=== PATIENT | male | born 1955 | race Caucasian/White ===

== ENCOUNTER 2017-12-23 11:26 | Outpatient (RCR) | payer SELFPAY | END 2017-12-24 23:59 | disposition home or self-care (01) | LOC: CR 11:26 | PROVIDERS: PCP Family Medicine; Visit Provider Family Medicine | DX: Z51.89 Encounter for other specified aftercare (principal); I10 Essential (primary) hypertension; J44.9 Chronic obstructive pulmonary disease, unspecified; E11.9 Type 2 diabetes mellitus without complications ==

== ENCOUNTER 2018-01-20 11:00 | Outpatient (RCR) | payer SELFPAY | END 2018-01-23 23:59 | disposition home or self-care (01) | LOC: CR 11:00 | PROVIDERS: PCP Family Medicine; Visit Provider Family Medicine | DX: Z51.89 Encounter for other specified aftercare (principal) ==

== ENCOUNTER 2018-02-15 11:00 | Outpatient (RCR) | payer SELFPAY | END 2018-02-23 23:59 | disposition home or self-care (01) | LOC: CR 11:00 | PROVIDERS: PCP Family Medicine; Visit Provider Family Medicine | DX: Z51.89 Encounter for other specified aftercare (principal) ==

== ENCOUNTER 2018-02-24 04:54 | Outpatient (RCR) | payer SELFPAY | END 2018-03-25 23:59 | disposition home or self-care (01) | LOC: CR 04:54 | PROVIDERS: PCP Family Medicine; Visit Provider Family Medicine | DX: Z51.89 Encounter for other specified aftercare (principal) ==

== ENCOUNTER 2018-02-28 08:44 | Outpatient (REF) | payer MEDICARE, BC, SELFPAY ==
[2018-02-28 12:38] LABS: HCT 47.6 % (40.0-50.0); HGB 14.8 g/dL (13.5-17.5); Mean Corp. HGB Concentration 31.1 g/dL (32.0-36.0); Mean Corpuscular Hemoglobin 30.5 pg (27.0-33.0); Mean Corpuscular Volume 98.1 fL (80-95); Mean Platelet Volume 12.5 fL (8.0-11.0); Platelet Count 231 x1000/uL (130-400); RBC 4.85 m/cumm (4.50-6.00); RBC Distribution Width 12.7 % (11.8-14.1); White Blood Cell Count 6.78 k/cumm (4.4-10.8)
[2018-02-28 12:51] LABS: ALT 44 U/L (12-78); AST 24 U/L (15-37); Albumin 3.8 g/dL (3.4-5.0); Alkaline Phosphatase 110 U/L (46-116); BUN 23 mg/dL (7-18); Bilirubin, Total 0.5 mg/dL (0.2-1.0); CREATININE 1.18 mg/dL (0.70-1.30); Calcium 8.9 mg/dL (8.5-10.1); Chloride 103 mmol/L (98-107); Cholesterol 179 mg/dL (50-200); Glucose 100 mg/dL (70-100); HDL Cholesterol 38 mg/dL (40-60); LDL CHOLESTEROL 121 mg/dL (<100); Potassium 4.4 mmol/L (3.5-5.1); Sodium 140 mmol/L (136-145); Total Protein 6.8 g/dL (6.4-8.2); Triglyceride 112 mg/dL (30-150)
== END 2018-02-28 09:04 ==
LOC: NCHCN 08:44
PROVIDERS: PCP Family Medicine; Visit Provider Family Medicine
DX: I10 Essential (primary) hypertension (principal); E11.9 Type 2 diabetes mellitus without complications; E78.00 Pure hypercholesterolemia, unspecified
CPT/HCPCS: 80053; 80061; 83721; 85027

== ENCOUNTER 2018-04-21 15:04 | Outpatient (RCR) | payer SELFPAY | END 2018-04-25 23:59 | disposition home or self-care (01) | LOC: CR 15:04 | PROVIDERS: PCP Family Medicine; Visit Provider Family Medicine | DX: Z51.89 Encounter for other specified aftercare (principal) ==

== ENCOUNTER 2018-05-26 11:00 | Outpatient (RCR) | payer SELFPAY | END 2018-05-26 23:59 | disposition home or self-care (01) | LOC: CR 11:00 | PROVIDERS: PCP Family Medicine; Visit Provider Family Medicine | DX: Z51.89 Encounter for other specified aftercare (principal) ==

== ENCOUNTER 2018-06-23 12:53 | Outpatient (RCR) | payer SELFPAY | END 2018-06-23 23:59 | disposition home or self-care (01) | LOC: CR 12:53 | PROVIDERS: PCP Family Medicine; Visit Provider Family Medicine | DX: Z51.89 Encounter for other specified aftercare (principal) ==

== ENCOUNTER 2018-07-21 11:00 | Outpatient (RCR) | payer SELFPAY | END 2018-07-24 23:59 | disposition home or self-care (01) | LOC: CR 11:00 | PROVIDERS: PCP Family Medicine; Visit Provider Family Medicine | DX: Z51.89 Encounter for other specified aftercare (principal) ==

== ENCOUNTER 2018-08-23 11:00 | Outpatient (RCR) | payer SELFPAY | END 2018-08-23 23:59 | disposition home or self-care (01) | LOC: CR 11:00 | PROVIDERS: PCP Family Medicine; Visit Provider Family Medicine | DX: Z51.89 Encounter for other specified aftercare (principal) ==

== ENCOUNTER 2018-09-16 13:03 | Emergency (ER) | payer MEDICARE, BC, SELFPAY ==
[2018-09-16 13:08] VITALS: BP 114/62; PULSE 92; RESP 20; TEMP 36.5; O2SAT 94
--- NOTE | 2018-09-16 13:12 | W.ED.GENAD ---
Discharge Plan Disposition Patient Disposition: HOME Condition: Improving Discharge Details Chief Complaint: Urinary Clinical Impression: Hematuria Primary Care Provider: Laura Vincent ED Provider: Daljit Alejo Home Meds and New Rx's Prescriptions: Continued atorvastatin [Lipitor] 80 MG tablet 80 mg PO DAILY RF: 0 acetaminophen [Tylenol] 325 MG tablet 650 mg PO Q4H PRN PRNQty: 90 RF: 0 Combivent Respimat 120 PUFF mist 1 puff Inhalation QID Qty: 6 RF: 0 albuterol sulfate 2.5 MG/3 ML solution for nebulization 2.5 mg Inhalation PRN PRNRF: 0 acetaminophen [Tylenol Extra Strength] 500 MG tablet 500 mg PO Q3H PRN PRNQty: 1 RF: 0 Xarelto 20 MG tablet 20 mg PO DAILY RF: 0 loratadine [Claritin Liqui-Gel] 10 mg Capsule 10 mg PO DAILY RF: 0 levetiracetam [Keppra] 250 MG tablet 500 mg PO BID RF: 0 lisinopril 20 MG tablet 20 mg PO DAILY RF: 0 Discharge Instructions Instructions: Hematuria (ED) Additional Instructions: Return if you develop fever, difficulty urinating, pain, or any other acute concerns As we discussed, I will refer you to urology for a outpatient consultation. Please follow-up with Dr. Vincent for recheck in the next 7 to 10 days time. Continue all regular medications Medical Decision Making 63-year-old male who takes Xarelto for history of pulmonary embolism. He presents with one episode of hematuria that he notes was bright red urine x1 and was painless. Denies antecedent injury or illness. He arrives with a temp of 36.5, pulse in the 90s, blood pressure 114/62. He is in no acute distress and his exam is reassuring. Differential diagnosis includes cystitis, bleeding due to anticoagulation, nephritis, tract mass. IV placed and screening labs and urinalysis obtained. Patient referred for CT urogram. The diagnostic studies reveal hematuria without evidence of UTI. Labs: White blood cell count 8, hematocrit 47, platelets 226, PT 10.0. Sodium 139, potassium 3.9, chloride 100, bicarb 29 BUN 23, creatinine 1.2. CTurogram is without acute findings. Please see formal report. As the patient has had pulmonary embolism, I feel that he must continue his Xarelto. We will refer to urology for completion of painless hematuria work-up. He understands return precautions including urinary bladder outlet obstruction, fever, development of pain. He is stable for discharge to home at this time. CC: Dr. Laura Vincent, [facility] Mode of arrival: ambulatory. Date/Time Provider Initiated Documentation: 09/16/18 13:05. Limitations to Documentation: no limitations. Information obtained by: patient and family. History of Present Illness 63 year old M presents to the emergency department with the chief complaint of Painless hematuria today, on Xarelto, described as mild, Quality is described as burning, and is localized to the genitals. Patient reports no radiation. Patient started experiencing this minute(s) and it has been intermittent. No relieving factors improve symptom(s), No exacerbating factors reported . Patient notes no other symptoms.; denies fever/chills and nausea/vomiting. Patient did receive the following treatments prior to arrival, none Related Data Home Medications Medication Instructions Recorded Confirmed atorvastatin [Lipitor] 80 mg PO DAILY 10/07/12 09/16/18 Combivent Respimat 1 puff INHALATION QID #6 inh 07/18/14 09/16/18 acetaminophen [Tylenol] 650 mg PO Q4H PRN PRN #90 tab 07/18/14 10/09/17 albuterol sulfate 2.5 mg INHALATION PRN PRN 09/29/15 09/16/18 acetaminophen [Tylenol Extra 500 mg PO Q3H PRN PRN #1 tablet 10/01/15 09/16/18 Strength] Xarelto 20 mg PO DAILY 02/14/16 09/16/18 levetiracetam [Keppra] 500 mg PO BID 05/03/16 09/16/18 lisinopril 20 mg PO DAILY 10/09/17 09/16/18 loratadine [Claritin Liqui-Gel] 10 mg PO DAILY 09/16/18 09/16/18 Previous Rx's Medication Instructions Recorded Combivent Respimat 1 puff INHALATION QID #6 inh 07/18/14 acetaminophen [Tylenol] 650 mg PO Q4H PRN PRN #90 tab 07/18/14 acetaminophen [Tylenol Extra 500 mg PO Q3H PRN PRN #1 tablet 10/01/15 Strength] Allergies Allergy/AdvReac Type Severity Reaction Status Date / Time lisinopril Allergy Mild Skin Rash Verified 09/16/18 13:11 General Stated Complaint: Urinary BETHEL: 3 Review of Systems Review of Systems No recent fall or injury. Takes Xarelto for pulmonary embolism history. 8 systems reviewed and otherwise negative [facility] Social History Smoking/Tobacco Use Status: Former Tobacco Use Drug use: Current Sobriety Do you feel safe in your relationship?: Yes Exam Narrative Exam Narrative: GEN: awake, alert, oriented 3. Pleasant, well groomed, interactive. HEAD: Normocephalic, atraumatic ENT: Mucous membranes moist, oropharynx unremarkable, External ear exam unremarkable EYES: PERRL, EOMI NECK: Full ROM, no JORGE, no menigismus CHEST/RESP: Nontender, clear to auscultation bilateral, no wheeze/rhonchi/rales CARDIOVASCULAR: RRR, no murmur, rub brent. 2+ Rad pulse bilateral ABDOMEN: Soft, nontender, no mass. +Bowel sounds EXT: Full ROM, no edema, no rash Neuro: Grossly normal neurologic exam, conversant, interactive. Psych: Speech fluent, thoughts congruent, affect normal Course Vital Signs Temperature 36.5 C 09/16/18 13:08 Pulse 92 H 09/16/18 13:08 Respiratory Rate 20 09/16/18 13:08 Blood Pressure 114/62 09/16/18 13:08 Pulse Oximetry 94 L 09/16/18 13:08 Temperature 36.5 C 09/16/18 13:08 Temperature Source Skin 09/16/18 13:08 Pulse 92 H 09/16/18 13:08 Respiratory Rate 20 09/16/18 13:08 Blood Pressure 114/62 09/16/18 13:08 Blood Pressure Position Sitting 09/16/18 13:08 Pulse Oximetry 94 L 09/16/18 13:08 Oxygen Delivery Method Room Air 09/16/18 13:08 Oxygen Flow Rate 0 09/16/18 13:08 Pain Level 0 09/16/18 13:08
--- NOTE | 2018-09-16 13:20 | DI.CT_ITS ---
SYMPTOMS/DIAGNOSIS: PAINLESS HEMATURIA, ON XARELTO CT OF THE ABDOMEN AND PELVIS: Comparison is made with December,. Images were performed before and after IV contrast and without oral contrast. No urinary tract calculi are seen. There is no evidence of hydronephrosis or renal mass. There is a stable simple cyst in the posterior aspect of the right kidney. The urinary bladder is mildly distended. There is a question of mild wall thickening. There is normal enhancement and excretion by both kidneys. There is very little prostate tissue. Correlation with history of prostatectomy is recommended. Again noted is a large cyst seen in the posterior right lung base. There are surgical clips in the splenic hilum and the spleen has a lobulated appearance consistent with splenic regeneration. The previously noted adrenal mass has been removed. There is no recurrent mass. Multiple collateral vessels are seen around the spine. An IVC filter is noted. The liver, gallbladder, pancreas and right adrenal are unremarkable. No bowel dilatation or inflammatory changes are seen. Diverticulosis is noted in the lower descending and sigmoid colon. The colon is redundant. The aorta is normal in diameter and shows calcification. There is no evidence of vascular occlusion. Multiple collateral vessels are seen in the subcutaneous fat of the anterior abdominal wall. Linear atelectasis is seen at the lung bases. Degenerative changes are seen in the spine. There are Schmorl's nodes at multiple levels. IMPRESSION: No evidence of urinary tract calculi, hydronephrosis or renal mass.
[2018-09-16 13:22] LABS: Bilirubin Small (Negative); Blood Large (Negative); Clarity Sl Cloudy; Glucose Negative (Negative); Ketones Negative (Negative); Leukocyte Esterase Negative (Negative); Nitrite Negative (Negative); Specific Gravity 1.025 (1.005-1.025); Urobilinogen 0.2 EU/dL (Up TO 0.2); pH 5.5 (5-8)
--- NOTE | 2018-09-16 13:25 | ED.GENADUL_ITS ---
Discharge Plan Disposition Patient Disposition: HOME Condition: Improving Discharge Details Chief Complaint: Urinary Clinical Impression: Hematuria Primary Care Provider: Laura Vincent ED Provider: Daljit Alejo Home Meds and New Rx's Prescriptions: Continued atorvastatin [Lipitor] 80 MG tablet 80 mg PO DAILY RF: 0 acetaminophen [Tylenol] 325 MG tablet 650 mg PO Q4H PRN PRNQty: 90 RF: 0 Combivent Respimat 120 PUFF mist 1 puff Inhalation QID Qty: 6 RF: 0 albuterol sulfate 2.5 MG/3 ML solution for nebulization 2.5 mg Inhalation PRN PRNRF: 0 acetaminophen [Tylenol Extra Strength] 500 MG tablet 500 mg PO Q3H PRN PRNQty: 1 RF: 0 Xarelto 20 MG tablet 20 mg PO DAILY RF: 0 loratadine [Claritin Liqui-Gel] 10 mg Capsule 10 mg PO DAILY RF: 0 levetiracetam [Keppra] 250 MG tablet 500 mg PO BID RF: 0 lisinopril 20 MG tablet 20 mg PO DAILY RF: 0 Discharge Instructions Instructions: Hematuria (ED) Additional Instructions: Return if you develop fever, difficulty urinating, pain, or any other acute concerns As we discussed, I will refer you to urology for a outpatient consultation. Please follow-up with Dr. Vincent for recheck in the next 7 to 10 days time. Continue all regular medications Medical Decision Making 63-year-old male who takes Xarelto for history of pulmonary embolism. He presents with one episode of hematuria that he notes was bright red urine x1 and was painless. Denies antecedent injury or illness. He arrives with a temp of 36.5, pulse in the 90s, blood pressure 114/62. He is in no acute distress and his exam is reassuring. Differential diagnosis includes cystitis, bleeding due to anticoagulation, nephritis, tract mass. IV placed and screening labs and urinalysis obtained. Patient referred for CT urogram. The diagnostic studies reveal hematuria without evidence of UTI. Labs: White blood cell count 8, hematocrit 47, platelets 226, PT 10.0. Sodium 139, potassium 3.9, chloride 100, bicarb 29 BUN 23, creatinine 1.2. CTurogram is without acute findings. Please see formal report. As the patient has had pulmonary embolism, I feel that he must continue his Xarelto. We will refer to urology for completion of painless hematuria work-up. He understands return precautions including urinary bladder outlet obstruction, fever, development of pain. He is stable for discharge to home at this time. CC: Dr. Laura Vincent, [facility] Mode of arrival: ambulatory . Date/Time Provider Initiated Documentation: 09/16/18 13:05 . Limitations to Documentation: no limitations . Information obtained by: patient and family . History of Present Illness 63 year old M presents to the emergency department with the chief complaint of Painless hematuria today, on Xarelto, described as mild, Quality is described as burning, and is localized to the genitals. Patient reports no radiation. Patient started experiencing this minute(s) and it has been intermittent. No relieving factors improve symptom(s), No exacerbating factors reported . Patient notes no other symptoms.; denies fever/chills and nausea/vomiting. Patient did receive the following treatments prior to arrival, none Related Data Home Medications Medication Instructions Recorded Confirmed atorvastatin [Lipitor] 80 mg PO DAILY 10/07/12 09/16/18 Combivent Respimat 1 puff INHALATION QID #6 inh 07/18/14 09/16/18 acetaminophen [Tylenol] 650 mg PO Q4H PRN PRN #90 tab 07/18/14 10/09/17 albuterol sulfate 2.5 mg INHALATION PRN PRN 09/29/15 09/16/18 acetaminophen [Tylenol Extra 500 mg PO Q3H PRN PRN #1 tablet 10/01/15 09/16/18 Strength] Xarelto 20 mg PO DAILY 02/14/16 09/16/18 levetiracetam [Keppra] 500 mg PO BID 05/03/16 09/16/18 lisinopril 20 mg PO DAILY 10/09/17 09/16/18 loratadine [Claritin Liqui-Gel] 10 mg PO DAILY 09/16/18 09/16/18 Previous Rx's Medication Instructions Recorded Combivent Respimat 1 puff INHALATION QID #6 inh 07/18/14 acetaminophen [Tylenol] 650 mg PO Q4H PRN PRN #90 tab 07/18/14 acetaminophen [Tylenol Extra 500 mg PO Q3H PRN PRN #1 tablet 10/01/15 Strength] Allergies Allergy/AdvReac Type Severity Reaction Status Date / Time lisinopril Allergy Mild Skin Rash Verified 09/16/18 13:11 General Stated Complaint: Urinary BETHEL: 3 Review of Systems Review of Systems No recent fall or injury. Takes Xarelto for pulmonary embolism history. 8 systems reviewed and otherwise negative [facility] Social History Smoking/Tobacco Use Status: Former Tobacco Use Drug use: Current Sobriety Do you feel safe in your relationship?: Yes Exam Narrative Exam Narrative: GEN: awake, alert, oriented 3. Pleasant, well groomed, interactive. HEAD: Normocephalic, atraumatic ENT: Mucous membranes moist, oropharynx unremarkable, External ear exam unremarkable EYES: PERRL, EOMI NECK: Full ROM, no JORGE, no menigismus CHEST/RESP: Nontender, clear to auscultation bilateral, no wheeze/rhonchi/rales CARDIOVASCULAR: RRR, no murmur, rub brent. 2+ Rad pulse bilateral ABDOMEN: Soft, nontender, no mass. +Bowel sounds EXT: Full ROM, no edema, no rash Neuro: Grossly normal neurologic exam, conversant, interactive. Psych: Speech fluent, thoughts congruent, affect normal Course Vital Signs Temperature 36.5 C 09/16/18 13:08 Pulse 92 H 09/16/18 13:08 Respiratory Rate 20 09/16/18 13:08 Blood Pressure 114/62 09/16/18 13:08 Pulse Oximetry 94 L 09/16/18 13:08 Temperature 36.5 C 09/16/18 13:08 Temperature Source Skin 09/16/18 13:08 Pulse 92 H 09/16/18 13:08 Respiratory Rate 20 09/16/18 13:08 Blood Pressure 114/62 09/16/18 13:08 Blood Pressure Position Sitting 09/16/18 13:08 Pulse Oximetry 94 L 09/16/18 13:08 Oxygen Delivery Method Room Air 09/16/18 13:08 Oxygen Flow Rate 0 09/16/18 13:08 Pain Level 0 09/16/18 13:08
[2018-09-16 13:37] LABS: C & S Indicated? No
[2018-09-16 13:40] LABS: Abs Immature Grans 0.01 k/cumm (0.0-0.09); Absolute Basophil Count 0.05 k/cumm (0.0-0.2); Absolute Eosinophil Count 0.44 k/cumm (0.0-0.7); Absolute Lymphocyte Count 1.25 k/cumm (1.2-3.4); Absolute Monocyte Count 0.78 k/cumm (0.11-0.7); Basophils % 0.6; HCT 47.7 % (40.0-50.0); HGB 15.4 g/dL (13.5-17.5); Immature Grans % 0.1; Lymphocytes % 14.3; Mean Corp. HGB Concentration 32.3 g/dL (32.0-36.0); Mean Corpuscular Hemoglobin 31.4 pg (27.0-33.0); Mean Corpuscular Volume 97.3 fL (80-95); Monocytes % 8.9; Neutrophils % 71.1; Platelet Count 226 x1000/uL (130-400); RBC Distribution Width 12.9 % (11.8-14.1); White Blood Cell Count 8.73 k/cumm (4.4-10.8)
[2018-09-16 13:50] LABS: ALT 55 U/L (12-78); AST 26 U/L (15-37); Albumin 4.1 g/dL (3.4-5.0); Alkaline Phosphatase 132 U/L (46-116); Anion Gap 9.7 mmol/L (3-11); BUN 23 mg/dL (7-18); Bilirubin, Total 0.6 mg/dL (0.2-1.0); CO2 29.3 mmol/L (21.0-32.0); CREATININE 1.24 mg/dL (0.70-1.30); Calcium 9.1 mg/dL (8.5-10.1); Chloride 100 mmol/L (98-107); Estimated GFR 58.88 (mL/min/1.73m2); Glucose 101 mg/dL (70-100); Potassium 3.9 mmol/L (3.5-5.1); Sodium 139 mmol/L (136-145)
[2018-09-16] MEDS: Omnipaque 350 MG/ML 100 ML BTL IJ (14:05)
[2018-09-16 15:49] VITALS: BP 114/62; PULSE 92; RESP 20; TEMP 36.5; O2SAT 94
--- NOTE | 2018-09-20 12:10 | PDOC.ERCMPRO ---
Care Management Progress Note 09/20-Dr. Alejo requested urology f/u for painless hematuria. [facility] this am.
== END 2018-09-16 15:45 | disposition home or self-care (01) ==
PROVIDERS: Emergency Provider Emergency Medicine; PCP Family Medicine
DX: R31.9 Hematuria, unspecified (principal); Z79.01 Long term (current) use of anticoagulants; Z86.711 Personal history of pulmonary embolism
CPT/HCPCS: 36415; 80053; 99285; 74178; 81003; 81015; 85025; 85610; 99284; J3490

== ENCOUNTER 2018-09-22 13:35 | Outpatient (RCR) | payer SELFPAY | END 2018-09-23 23:59 | disposition home or self-care (01) | LOC: CR 13:35 | PROVIDERS: PCP Family Medicine; Visit Provider Family Medicine | DX: Z51.89 Encounter for other specified aftercare (principal) ==

== ENCOUNTER 2018-10-20 11:27 | Outpatient (RCR) | payer SELFPAY | END 2018-10-23 23:59 | disposition home or self-care (01) | LOC: CR 11:27 | PROVIDERS: PCP Family Medicine; Visit Provider Family Medicine | DX: Z51.89 Encounter for other specified aftercare (principal) ==

== ENCOUNTER 2018-11-22 13:29 | Outpatient (RCR) | payer SELFPAY | END 2018-11-23 23:59 | disposition home or self-care (01) | LOC: CR 13:29 | PROVIDERS: PCP Family Medicine; Visit Provider Family Medicine | DX: Z51.89 Encounter for other specified aftercare (principal) ==

== ENCOUNTER → 2018-12-07 10:50 | Outpatient (BNVA) | payer MEDICARE, BC, SELFPAY | PROVIDERS: PCP Family Medicine; Visit Provider Nurse Practitioner Gerontology | DX: R31.0 Gross hematuria (principal); Z79.01 Long term (current) use of anticoagulants; I10 Essential (primary) hypertension; J44.9 Chronic obstructive pulmonary disease, unspecified; Z87.891 Personal history of nicotine dependence | CPT/HCPCS: 81003; 99204; 99215 ==

== ENCOUNTER 2018-12-20 11:45 | Outpatient (RCR) | payer SELFPAY | END 2018-12-24 23:59 | disposition home or self-care (01) | LOC: CR 11:45 | PROVIDERS: PCP Family Medicine; Visit Provider Family Medicine | DX: Z51.89 Encounter for other specified aftercare (principal) ==

== ENCOUNTER 2019-01-19 11:59 | Outpatient (RCR) | payer SELFPAY | END 2019-01-23 23:59 | disposition home or self-care (01) | LOC: CR 11:59 | PROVIDERS: PCP Family Medicine; Visit Provider Family Medicine | DX: Z51.89 Encounter for other specified aftercare (principal) ==

== ENCOUNTER 2019-02-22 08:25 | Outpatient (REF) | payer MEDICARE, BC, SELFPAY ==
[2019-02-22 13:36] LABS: HGB 14.7 g/dL (13.5-17.5); Mean Corp. HGB Concentration 32.7 g/dL (32.0-36.0); Mean Corpuscular Hemoglobin 31.7 pg (27.0-33.0); Mean Corpuscular Volume 97.2 fL (80-95); Mean Platelet Volume 13.1 fL (8.0-11.0); Platelet Count 251 x1000/uL (130-400); RBC 4.63 m/cumm (4.50-6.00); RBC Distribution Width 12.5 % (11.8-14.1); White Blood Cell Count 7.07 k/cumm (4.4-10.8)
[2019-02-22 13:38] LABS: ALT 37 U/L (16-63); AST 16 U/L (15-37); Albumin 3.9 g/dL (3.4-5.0); Alkaline Phosphatase 107 U/L (46-116); BUN 26 mg/dL (7-18); Bilirubin, Total 0.5 mg/dL (0.2-1.0); CREATININE 1.21 mg/dL (0.70-1.30); Calcium 9.4 mg/dL (8.5-10.1); Calculated LDL 118 mg/dL; Chloride 104 mmol/L (98-107); Cholesterol 180 mg/dL (50-200); Glucose 96 mg/dL (70-100); HDL Cholesterol 40 mg/dL (40-60); Potassium 4.6 mmol/L (3.5-5.1); Sodium 142 mmol/L (136-145); Total Protein 7.1 g/dL (6.4-8.2); Triglyceride 110 mg/dL (30-150)
== END 2019-02-22 08:45 ==
LOC: NCHCN 08:25
PROVIDERS: PCP Family Medicine; Visit Provider Family Medicine
DX: Z00.00 Encounter for general adult medical examination without abnormal findings (principal); E78.00 Pure hypercholesterolemia, unspecified; I10 Essential (primary) hypertension; R73.09 Other abnormal glucose
CPT/HCPCS: 80053; 80061; 85027; 83036

== ENCOUNTER 2019-02-23 12:02 | Outpatient (RCR) | payer SELFPAY | END 2019-02-23 23:59 | disposition home or self-care (01) | LOC: CR 12:02 | PROVIDERS: PCP Family Medicine; Visit Provider Family Medicine | DX: Z51.89 Encounter for other specified aftercare (principal) ==

== ENCOUNTER 2019-03-02 11:00 | Outpatient (RCR) | payer SELFPAY | END 2019-03-25 23:59 | disposition home or self-care (01) | LOC: CR 11:00 | PROVIDERS: PCP Family Medicine; Visit Provider Family Medicine | DX: Z51.89 Encounter for other specified aftercare (principal) ==

== ENCOUNTER 2019-04-20 11:00 | Outpatient (RCR) | payer SELFPAY | END 2019-04-25 23:59 | disposition home or self-care (01) | LOC: CR 11:00 | PROVIDERS: PCP Family Medicine; Visit Provider Family Medicine | DX: Z51.89 Encounter for other specified aftercare (principal) ==

== ENCOUNTER 2019-05-25 11:00 | Outpatient (RCR) | payer SELFPAY | END 2019-05-26 23:59 | disposition home or self-care (01) | LOC: CR 11:00 | PROVIDERS: PCP Family Medicine; Visit Provider Family Medicine | DX: Z51.89 Encounter for other specified aftercare (principal) ==

== ENCOUNTER 2019-06-22 11:00 | Outpatient (RCR) | payer SELFPAY | END 2019-06-24 23:59 | disposition home or self-care (01) | LOC: CR 11:00 | PROVIDERS: PCP Family Medicine; Visit Provider Family Medicine | DX: Z51.89 Encounter for other specified aftercare (principal) ==

== ENCOUNTER 2019-07-04 11:00 | Outpatient (RCR) | payer SELFPAY | END 2019-07-25 23:59 | disposition home or self-care (01) | LOC: CR 11:00 | PROVIDERS: PCP Family Medicine; Visit Provider Family Medicine | DX: Z51.89 Encounter for other specified aftercare (principal) ==

== ENCOUNTER 2020-12-24 11:00 | Outpatient (RCR) | payer SELFPAY ==
[2020-11-24 00:16] VITALS: BP 111/69; PULSE 74
[2020-11-26 10:57] VITALS: BP 129/75; PULSE 82
[2020-11-28 13:04] VITALS: BP 152/89
[2020-12-03 11:07] VITALS: BP 130/99; PULSE 74
[2020-12-05 10:57] VITALS: BP 150/92; PULSE 77; O2SAT 95
[2020-12-10 11:01] VITALS: BP 130/79; PULSE 73
[2020-12-12 10:58] VITALS: BP 145/79; PULSE 75
[2020-12-19 10:56] VITALS: BP 121/82; PULSE 81
[2020-12-24 13:57] VITALS: BP 140/79; PULSE 76
== END 2020-12-24 23:59 | disposition home or self-care (01) ==
LOC: CR 11:00
PROVIDERS: PCP Family Medicine; Visit Provider Family Medicine
DX: Z51.89 Encounter for other specified aftercare (principal)

== ENCOUNTER 2021-01-23 11:00 | Outpatient (RCR) | payer SELFPAY ==
[2020-12-25 00:20] VITALS: BP 140/79; PULSE 76
[2020-12-26 11:37] VITALS: BP 118/78; PULSE 79
[2020-12-31 13:12] VITALS: BP 145/87; PULSE 73
[2021-01-02 11:05] VITALS: BP 139/85; PULSE 76; O2SAT 92
[2021-01-07 11:18] VITALS: BP 146/90; PULSE 73
[2021-01-09 11:16] VITALS: BP 136/94; PULSE 77
[2021-01-14 10:59] VITALS: BP 123/77; PULSE 78; O2SAT 95
[2021-01-16 11:01] VITALS: BP 118/74; PULSE 78; O2SAT 92
[2021-01-23 11:08] VITALS: BP 125/78; PULSE 81
[2021-01-28 10:58] VITALS: BP 138/82; PULSE 82; O2SAT 91
== END 2021-01-23 23:59 | disposition home or self-care (01) ==
LOC: CR 11:00
PROVIDERS: PCP Family Medicine; Visit Provider Family Medicine
DX: Z51.89 Encounter for other specified aftercare (principal)

== ENCOUNTER 2021-02-20 11:00 | Outpatient (RCR) | payer SELFPAY ==
[2021-01-24 00:10] VITALS: BP 125/78; PULSE 81
[2021-02-04 11:25] VITALS: BP 145/87; PULSE 76
[2021-02-06 12:49] VITALS: BP 119/73; PULSE 81
[2021-02-11 11:06] VITALS: BP 153/83; PULSE 77; O2SAT 90
[2021-02-13 11:03] VITALS: BP 160/81; PULSE 76; O2SAT 93
[2021-02-18 11:04] VITALS: BP 120/83; PULSE 76
[2021-02-20 11:04] VITALS: BP 130/85; PULSE 83
== END 2021-02-23 23:59 | disposition home or self-care (01) ==
LOC: CR 11:00
PROVIDERS: PCP Family Medicine; Visit Provider Family Medicine
DX: Z51.89 Encounter for other specified aftercare (principal); R69 Illness, unspecified

== ENCOUNTER 2021-03-25 11:00 | Outpatient (RCR) | payer SELFPAY ==
[2021-02-24 00:20] VITALS: BP 130/85; PULSE 83
[2021-02-25 11:45] VITALS: BP 135/84; PULSE 80; O2SAT 89
[2021-02-27 10:55] VITALS: BP 135/92; PULSE 88; O2SAT 96
[2021-03-25 11:01] VITALS: BP 146/78; PULSE 87
== END 2021-03-25 23:59 | disposition home or self-care (01) ==
LOC: CR 11:00
PROVIDERS: PCP Family Medicine; Visit Provider Family Medicine
DX: Z51.89 Encounter for other specified aftercare (principal); R69 Illness, unspecified

== ENCOUNTER 2021-04-24 11:00 | Outpatient (RCR) | payer SELFPAY ==
[2021-03-26 00:06] VITALS: BP 146/78; PULSE 87
[2021-04-01 14:24] VITALS: BP 143/82; PULSE 83
[2021-04-03 10:54] VITALS: BP 162/97; PULSE 74; O2SAT 93
[2021-04-08 11:38] VITALS: BP 148/80; PULSE 85
[2021-04-10 11:49] VITALS: BP 148/92; PULSE 75
[2021-04-15 10:55] VITALS: BP 127/82; PULSE 72; O2SAT 93
[2021-04-17 10:52] VITALS: BP 160/94; PULSE 77; O2SAT 90
[2021-04-22 11:05] VITALS: BP 143/83; PULSE 78
[2021-04-24 11:50] VITALS: BP 121/74; PULSE 70
== END 2021-04-25 23:59 | disposition home or self-care (01) ==
LOC: CR 11:00
PROVIDERS: PCP Family Medicine; Visit Provider Family Medicine
DX: Z51.89 Encounter for other specified aftercare (principal); R69 Illness, unspecified

== ENCOUNTER 2021-08-14 11:00 | Outpatient (RCR) | payer SELFPAY ==
[2021-07-25 00:07] VITALS: BP 124/83; PULSE 77
[2021-07-29 11:10] VITALS: BP 133/89; PULSE 82
[2021-07-31 10:55] VITALS: BP 125/75; PULSE 79
[2021-08-05 11:15] VITALS: BP 130/79; PULSE 78
[2021-08-07 11:39] VITALS: BP 111/69; PULSE 75
[2021-08-14 11:00] VITALS: BP 142/85; PULSE 75; O2SAT 92
== END 2021-08-23 23:59 | disposition home or self-care (01) ==
LOC: CR 11:00
PROVIDERS: PCP Family Medicine; Visit Provider Internal Medicine Cardiovascular Disease
DX: R69 Illness, unspecified (principal)

== ENCOUNTER 2021-09-16 11:00 | Outpatient (RCR) | payer SELFPAY ==
[2021-08-24 00:04] VITALS: BP 142/85; PULSE 75
[2021-09-09 11:27] VITALS: BP 124/83; PULSE 83
[2021-09-16 13:42] VITALS: BP 125/84; PULSE 79
[2021-09-18 11:00] VITALS: BP 131/81; PULSE 82
== END 2021-09-23 23:59 | disposition home or self-care (01) ==
LOC: CR 11:00
PROVIDERS: PCP Family Medicine; Visit Provider Internal Medicine Cardiovascular Disease
DX: R69 Illness, unspecified (principal)

== ENCOUNTER 2021-10-23 11:00 | Outpatient (RCR) | payer SELFPAY ==
[2021-09-24 00:03] VITALS: BP 131/81; PULSE 82
[2021-09-25 11:08] VITALS: BP 127/70; PULSE 77
[2021-09-30 11:15] VITALS: BP 124/84; PULSE 77; O2SAT 92
[2021-10-02 11:57] VITALS: BP 139/85; PULSE 75
[2021-10-07 11:03] VITALS: BP 128/73; PULSE 80
[2021-10-21 13:26] VITALS: BP 120/73; PULSE 74
[2021-10-23 10:45] VITALS: BP 128/77; PULSE 74; O2SAT 93
== END 2021-10-23 23:59 | disposition home or self-care (01) ==
LOC: CR 11:00
PROVIDERS: PCP Family Medicine; Visit Provider Internal Medicine Cardiovascular Disease
DX: R69 Illness, unspecified (principal)

== ENCOUNTER 2021-11-20 11:03 | Outpatient (RCR) | payer SELFPAY ==
[2021-10-28 14:20] VITALS: BP 121/82; PULSE 74
[2021-10-30 10:55] VITALS: BP 125/78; PULSE 78; O2SAT 90
[2021-11-04 11:04] VITALS: BP 130/81; PULSE 76; O2SAT 91
[2021-11-06 10:57] VITALS: BP 145/84; PULSE 73
[2021-11-11 10:57] VITALS: BP 129/87; PULSE 78; O2SAT 92
[2021-11-13 11:20] VITALS: BP 132/68; PULSE 82
[2021-11-18 11:07] VITALS: BP 121/78; PULSE 76
[2021-11-20 10:59] VITALS: BP 107/73; PULSE 78; O2SAT 93
== END 2021-11-23 23:59 | disposition home or self-care (01) ==
LOC: CR 11:03
PROVIDERS: PCP Family Medicine; Visit Provider Internal Medicine Cardiovascular Disease
DX: R69 Illness, unspecified (principal)

== ENCOUNTER 2021-12-23 11:01 | Outpatient (RCR) | payer SELFPAY ==
[2021-11-24 00:16] VITALS: BP 107/73; PULSE 78
[2021-11-25 11:29] VITALS: BP 107/64; PULSE 80; O2SAT 94
[2021-11-27 11:32] VITALS: BP 107/67; PULSE 75
[2021-12-04 10:57] VITALS: BP 120/79; PULSE 75; O2SAT 92
[2021-12-09 11:02] VITALS: BP 143/81; PULSE 73; O2SAT 92
[2021-12-11 10:50] VITALS: BP 127/83; PULSE 74; O2SAT 92
[2021-12-16 10:54] VITALS: BP 120/80; PULSE 74; O2SAT 92
[2021-12-18 10:52] VITALS: BP 149/93; PULSE 77; O2SAT 90
[2021-12-23 10:57] VITALS: BP 108/78; PULSE 80; O2SAT 93
== END 2021-12-24 23:59 | disposition home or self-care (01) ==
LOC: CR 11:01
PROVIDERS: PCP Family Medicine; Visit Provider Internal Medicine Cardiovascular Disease
DX: R69 Illness, unspecified (principal)

== ENCOUNTER 2022-01-20 11:07 | Outpatient (RCR) | payer SELFPAY ==
[2021-12-25 00:07] VITALS: BP 108/78; PULSE 80
[2021-12-25 11:00] VITALS: BP 130/75; PULSE 69; O2SAT 92
[2021-12-30 10:57] VITALS: BP 128/83; PULSE 76; O2SAT 94
[2022-01-01 10:59] VITALS: BP 134/81; PULSE 73
[2022-01-06 10:57] VITALS: BP 128/85; PULSE 76; O2SAT 91
[2022-01-08 10:58] VITALS: BP 130/84; PULSE 70; O2SAT 92
[2022-01-13 10:54] VITALS: BP 126/82; PULSE 77; O2SAT 93
[2022-01-15 10:52] VITALS: BP 157/87; PULSE 75; O2SAT 93
[2022-01-20 11:04] VITALS: BP 125/82; PULSE 75; O2SAT 94
== END 2022-01-23 23:59 | disposition home or self-care (01) ==
LOC: CR 11:07
PROVIDERS: PCP Family Medicine; Visit Provider Internal Medicine Cardiovascular Disease
DX: R69 Illness, unspecified (principal)

== ENCOUNTER 2022-02-19 10:58 | Outpatient (RCR) | payer SELFPAY ==
[2022-01-24 00:18] VITALS: BP 125/82; PULSE 75
[2022-01-27 11:00] VITALS: BP 129/82; PULSE 66; O2SAT 91
[2022-02-03 10:58] VITALS: BP 128/77; PULSE 74; O2SAT 92
[2022-02-05 10:56] VITALS: BP 130/79; PULSE 68; O2SAT 93
[2022-02-10 11:00] VITALS: BP 149/92; PULSE 76; O2SAT 89
[2022-02-17 10:57] VITALS: BP 139/85; PULSE 73; O2SAT 92
[2022-02-19 10:54] VITALS: BP 124/81; PULSE 74; O2SAT 93
== END 2022-02-23 23:59 | disposition home or self-care (01) ==
LOC: CR 10:58
PROVIDERS: PCP Family Medicine; Visit Provider Internal Medicine Cardiovascular Disease
DX: R69 Illness, unspecified (principal)
CPT/HCPCS: S9472

== ENCOUNTER 2022-03-05 11:38 | Outpatient (RCR) | payer SELFPAY ==
[2022-02-24 00:19] VITALS: BP 124/81; PULSE 74
[2022-02-24 11:46] VITALS: BP 136/86; PULSE 75; O2SAT 94
[2022-02-26 10:51] VITALS: BP 159/84; PULSE 66; O2SAT 90
== END 2022-03-25 23:59 | disposition home or self-care (01) ==
LOC: CR 11:38
PROVIDERS: PCP Family Medicine; Visit Provider Internal Medicine Cardiovascular Disease
DX: R69 Illness, unspecified (principal)

== ENCOUNTER 2022-04-23 11:00 | Outpatient (RCR) | payer SELFPAY ==
[2022-03-26 00:19] VITALS: BP 159/84; PULSE 66
[2022-04-07 10:58] VITALS: BP 149/80; PULSE 70
[2022-04-09 11:01] VITALS: BP 132/85; PULSE 73; O2SAT 95
[2022-04-16 11:22] VITALS: BP 139/78; PULSE 71; O2SAT 91
[2022-04-21 10:54] VITALS: BP 119/72; PULSE 73; O2SAT 95
[2022-04-23 10:57] VITALS: BP 129/83; PULSE 76; O2SAT 95
== END 2022-04-25 23:59 | disposition home or self-care (01) ==
LOC: CR 11:00
PROVIDERS: PCP Family Medicine; Visit Provider Internal Medicine Cardiovascular Disease
DX: R69 Illness, unspecified (principal)

== ENCOUNTER 2022-05-26 11:08 | Outpatient (RCR) | payer SELFPAY ==
[2022-04-26 00:10] VITALS: BP 129/83; PULSE 76
[2022-04-28 10:57] VITALS: BP 141/91; PULSE 81; O2SAT 92
[2022-04-30 10:56] VITALS: BP 123/77; PULSE 76; O2SAT 94
[2022-05-07 10:56] VITALS: BP 125/74; PULSE 80; O2SAT 90
[2022-05-12 11:00] VITALS: BP 132/80; PULSE 81; O2SAT 94
[2022-05-14 11:10] VITALS: BP 125/78; PULSE 78; O2SAT 94
[2022-05-26 11:07] VITALS: BP 139/80; PULSE 76; O2SAT 92
== END 2022-05-26 23:59 | disposition home or self-care (01) ==
LOC: CR 11:08
PROVIDERS: PCP Family Medicine; Visit Provider Internal Medicine Cardiovascular Disease
DX: R69 Illness, unspecified (principal)

== ENCOUNTER 2022-06-23 13:33 | Outpatient (REF) | payer MEDICARE, BC, SELFPAY ==
[2022-06-23 15:38] LABS: ALT 33 U/L (16-63); AST 20 U/L (15-37); Albumin 3.8 g/dL (3.4-5.0); Alkaline Phosphatase 119 U/L (46-116); Anion Gap 6.8 mmol/L (3-11); BUN 27 mg/dL (7-18); Bilirubin, Total 0.5 mg/dL (0.2-1.0); CO2 32.2 mmol/L (21.0-32.0); CREATININE 1.3 mg/dL (0.70-1.30); Calcium 9.6 mg/dL (8.5-10.1); Calculated LDL 139 mg/dL (<100); Chloride 103 mmol/L (98-107); Cholesterol 210 mg/dL (<200); Estimated GFR 60.21 (mL/min/1.73m2); Glucose 94 mg/dL (74-106); HDL Cholesterol 46 mg/dL (40-60); Potassium 4.8 mmol/L (3.5-5.1); Sodium 142 mmol/L (136-145); Total Protein 7.3 g/dL (6.4-8.2); Triglyceride 129 mg/dL (<150)
[2022-06-23 15:41] LABS: Hemoglobin A1C 5.6 % (<5.7)
[2022-06-24 18:18] LABS: PSA, Screening 0.1 ng/mL (<=4.5)
== END 2022-06-23 13:34 | disposition home or self-care (01) ==
LOC: NCHCN 13:33
PROVIDERS: PCP Family Medicine; Visit Provider Family Medicine
DX: E78.00 Pure hypercholesterolemia, unspecified (principal); R73.03 Prediabetes; I10 Essential (primary) hypertension; E66.8 Other obesity; Z12.5 Encounter for screening for malignant neoplasm of prostate; N42.9 Disorder of prostate, unspecified
CPT/HCPCS: 80053; 80061; 84153; 83036

== ENCOUNTER 2022-07-23 11:00 | Outpatient (RCR) | payer SELFPAY ==
[2022-06-24 00:17] VITALS: BP 138/79; PULSE 76; RESP 20
[2022-06-25 11:10] VITALS: BP 146/77; PULSE 83
[2022-06-30 10:57] VITALS: BP 135/82; PULSE 76
[2022-07-02 11:04] VITALS: BP 162/91; PULSE 69; O2SAT 92
[2022-07-14 11:10] VITALS: BP 142/78; PULSE 68
[2022-07-16 11:13] VITALS: BP 139/80; PULSE 74
[2022-07-21 11:01] VITALS: BP 134/80; PULSE 71
[2022-07-23 13:06] VITALS: BP 129/87; PULSE 80
[2022-07-28 11:17] VITALS: BP 119/73; PULSE 75
== END 2022-07-24 23:59 | disposition home or self-care (01) ==
LOC: CR 11:00
PROVIDERS: PCP Family Medicine; Visit Provider Internal Medicine Cardiovascular Disease

== ENCOUNTER 2022-08-20 11:16 | Outpatient (RCR) | payer SELFPAY ==
[2022-07-25 00:21] VITALS: BP 129/87; PULSE 80; RESP 20
[2022-07-30 11:28] VITALS: BP 139/77; PULSE 65
[2022-08-04 11:15] VITALS: BP 130/80; PULSE 67
[2022-08-06 11:02] VITALS: BP 131/76; PULSE 68
[2022-08-11 11:03] VITALS: BP 128/81; PULSE 70
[2022-08-18 11:40] VITALS: BP 137/73; PULSE 72
[2022-08-20 11:21] VITALS: BP 128/81; PULSE 70
== END 2022-08-23 23:59 | disposition home or self-care (01) ==
LOC: CR 11:16
PROVIDERS: PCP Family Medicine; Visit Provider Internal Medicine Cardiovascular Disease
DX: R69 Illness, unspecified (principal)

== ENCOUNTER 2022-09-22 11:02 | Outpatient (RCR) | payer SELFPAY ==
[2022-08-24 00:20] VITALS: BP 128/81; PULSE 70; RESP 20
[2022-09-03 11:20] VITALS: BP 127/58
[2022-09-08 11:08] VITALS: BP 129/79; PULSE 77
[2022-09-15 11:02] VITALS: BP 137/77; PULSE 76
[2022-09-17 13:01] VITALS: BP 141/72; PULSE 74
[2022-09-22 11:24] VITALS: BP 136/82; PULSE 76
== END 2022-09-23 23:59 | disposition home or self-care (01) ==
LOC: CR 11:02
PROVIDERS: PCP Family Medicine; Visit Provider Internal Medicine Cardiovascular Disease

== ENCOUNTER 2022-10-22 11:00 | Outpatient (RCR) | payer SELFPAY ==
[2022-09-24 00:18] VITALS: BP 136/82; PULSE 76; RESP 20
[2022-09-29 11:00] VITALS: BP 135/82; PULSE 78; O2SAT 93
[2022-10-01 11:15] VITALS: BP 129/80; PULSE 72
[2022-10-13 10:58] VITALS: BP 140/83; PULSE 72
[2022-10-15 11:00] VITALS: BP 139/82; PULSE 75; O2SAT 94
[2022-10-20 11:01] VITALS: BP 107/66; PULSE 80
[2022-10-20 11:02] VITALS: O2SAT 92
[2022-10-22 11:34] VITALS: BP 141/85; PULSE 76; O2SAT 92
== END 2022-10-23 23:59 | disposition home or self-care (01) ==
LOC: CR 11:00
PROVIDERS: PCP Family Medicine; Visit Provider Internal Medicine Cardiovascular Disease
DX: R69 Illness, unspecified (principal)

== ENCOUNTER 2022-11-19 10:58 | Outpatient (RCR) | payer SELFPAY ==
[2022-10-24 00:08] VITALS: BP 141/85; PULSE 76; RESP 20
[2022-11-03 11:09] VITALS: BP 134/73; PULSE 69
[2022-11-05 11:44] VITALS: BP 119/77; PULSE 80
[2022-11-12 11:12] VITALS: BP 129/83; PULSE 75
[2022-11-17 11:03] VITALS: BP 127/83; PULSE 74; O2SAT 92
[2022-11-19 11:06] VITALS: BP 118/79; PULSE 76; O2SAT 91
== END 2022-11-23 23:59 | disposition home or self-care (01) ==
LOC: CR 10:58
PROVIDERS: PCP Family Medicine; Visit Provider Internal Medicine Cardiovascular Disease
DX: R69 Illness, unspecified (principal)

== ENCOUNTER 2022-12-24 11:03 | Outpatient (RCR) | payer SELFPAY ==
[2022-11-24 00:04] VITALS: BP 118/79; PULSE 76; RESP 20
[2022-11-24 10:56] VITALS: BP 126/82; PULSE 80; O2SAT 91
[2022-11-26 11:25] VITALS: BP 114/74; PULSE 78; O2SAT 95
[2022-12-01 11:00] VITALS: BP 113/71; PULSE 87; O2SAT 92
[2022-12-03 11:20] VITALS: BP 104/65; PULSE 71
[2022-12-08 11:48] VITALS: BP 133/74; PULSE 76
[2022-12-10 11:00] VITALS: BP 112/66; PULSE 72; O2SAT 95
[2022-12-22 11:09] VITALS: BP 121/74; PULSE 80; O2SAT 91
[2022-12-24 11:11] VITALS: BP 127/77; PULSE 77; O2SAT 93
== END 2022-12-24 23:59 | disposition home or self-care (01) ==
LOC: CR 11:03
PROVIDERS: PCP Family Medicine; Visit Provider Internal Medicine Cardiovascular Disease
DX: R69 Illness, unspecified (principal)

== ENCOUNTER 2023-01-21 11:04 | Outpatient (RCR) | payer SELFPAY ==
[2022-12-25 00:15] VITALS: BP 127/77; PULSE 77; RESP 20
[2022-12-31 13:45] VITALS: BP 122/77; PULSE 72; O2SAT 95
[2023-01-12 10:56] VITALS: BP 110/69; PULSE 79; O2SAT 91
[2023-01-14 11:25] VITALS: BP 125/77; PULSE 86
[2023-01-19 11:07] VITALS: BP 106/70; PULSE 87; O2SAT 92
[2023-01-21 11:11] VITALS: BP 119/68; PULSE 81
== END 2023-01-23 23:59 | disposition home or self-care (01) ==
LOC: CR 11:04
PROVIDERS: PCP Family Medicine; Visit Provider Internal Medicine Cardiovascular Disease
DX: R69 Illness, unspecified (principal)

== ENCOUNTER 2023-02-23 11:10 | Outpatient (RCR) | payer SELFPAY ==
[2023-01-24 00:05] VITALS: BP 119/68; PULSE 81; RESP 20
[2023-01-26 10:58] VITALS: BP 118/69; PULSE 83
[2023-01-28 12:58] VITALS: BP 116/71; PULSE 77
[2023-02-04 11:02] VITALS: BP 132/90; PULSE 80; O2SAT 88
[2023-02-09 10:52] VITALS: BP 146/76; PULSE 83
[2023-02-16 11:24] VITALS: BP 141/82; PULSE 86
[2023-02-18 11:53] VITALS: BP 125/72; PULSE 75
[2023-02-23 13:11] VITALS: BP 138/84; PULSE 83
== END 2023-02-23 23:59 | disposition home or self-care (01) ==
LOC: CR 11:10
PROVIDERS: PCP Family Medicine; Visit Provider Internal Medicine Cardiovascular Disease
DX: R69 Illness, unspecified (principal)

== ENCOUNTER 2023-03-25 11:10 | Outpatient (RCR) | payer SELFPAY ==
[2023-02-24 00:17] VITALS: BP 119/68; PULSE 81; RESP 20
[2023-02-25 11:04] VITALS: BP 125/74; PULSE 76; O2SAT 92
[2023-03-02 11:09] VITALS: BP 136/78; PULSE 83
[2023-03-23 11:01] VITALS: BP 134/76; PULSE 84
[2023-03-25 11:01] VITALS: BP 156/79; PULSE 77
== END 2023-03-25 23:59 | disposition home or self-care (01) ==
LOC: CR 11:10
PROVIDERS: PCP Family Medicine; Visit Provider Internal Medicine Cardiovascular Disease
DX: R69 Illness, unspecified (principal)

== ENCOUNTER 2023-04-22 10:55 | Outpatient (RCR) | payer SELFPAY ==
[2023-03-26 00:08] VITALS: BP 119/68; PULSE 81; RESP 20
[2023-03-30 11:45] VITALS: BP 122/74; PULSE 83; O2SAT 92
[2023-04-01 11:32] VITALS: BP 133/72; PULSE 78; O2SAT 90
[2023-04-06 11:10] VITALS: BP 142/92; PULSE 92
[2023-04-08 11:33] VITALS: BP 117/69; PULSE 95
[2023-04-13 11:00] VITALS: BP 110/69; PULSE 79
[2023-04-20 14:58] VITALS: BP 126/75; PULSE 75
[2023-04-22 10:58] VITALS: BP 133/77; PULSE 77; O2SAT 92
== END 2023-04-25 23:59 | disposition home or self-care (01) ==
LOC: CR 10:55
PROVIDERS: PCP Family Medicine; Visit Provider Internal Medicine Cardiovascular Disease
DX: R69 Illness, unspecified (principal)

== ENCOUNTER 2023-05-25 11:02 | Outpatient (RCR) | payer SELFPAY ==
[2023-04-26 00:17] VITALS: BP 119/68; PULSE 81; RESP 20
[2023-04-27 11:05] VITALS: BP 111/72; PULSE 86; O2SAT 92
[2023-04-29 11:21] VITALS: BP 108/66; PULSE 96; O2SAT 92
[2023-05-04 11:48] VITALS: BP 119/74; PULSE 83; O2SAT 90
[2023-05-06 11:27] VITALS: BP 119/70; PULSE 85; O2SAT 90
[2023-05-11 11:03] VITALS: BP 138/81; PULSE 88; O2SAT 91
[2023-05-13 11:08] VITALS: BP 131/75; PULSE 85; O2SAT 92
[2023-05-18 11:04] VITALS: BP 119/74; PULSE 88
[2023-05-20 11:00] VITALS: BP 137/79; PULSE 84; O2SAT 93
[2023-05-25 11:16] VITALS: BP 138/73; PULSE 88; O2SAT 88
== END 2023-05-26 23:59 | disposition home or self-care (01) ==
LOC: CR 11:02
PROVIDERS: PCP Family Medicine; Visit Provider Internal Medicine Interventional Cardiology
DX: R69 Illness, unspecified (principal)

== ENCOUNTER 2023-06-24 12:46 | Outpatient (RCR) | payer SELFPAY ==
[2023-05-27 00:08] VITALS: BP 119/68; PULSE 81; RESP 20
[2023-05-27 10:59] VITALS: BP 121/79; PULSE 77
[2023-06-01 11:06] VITALS: BP 123/81; PULSE 94; O2SAT 94
[2023-06-03 13:28] VITALS: BP 121/75; PULSE 87; O2SAT 93
[2023-06-10 11:04] VITALS: BP 107/61; PULSE 88; O2SAT 92
[2023-06-15 13:08] VITALS: BP 129/78; PULSE 84
[2023-06-17 11:20] VITALS: BP 120/69; PULSE 99; O2SAT 94
[2023-06-22 13:14] VITALS: BP 131/76; PULSE 82
[2023-06-24 12:52] VITALS: BP 113/68; PULSE 85; O2SAT 92
== END 2023-06-24 23:59 | disposition home or self-care (01) ==
LOC: CR 12:46
PROVIDERS: PCP Family Medicine; Visit Provider Internal Medicine Cardiovascular Disease
DX: R69 Illness, unspecified (principal)

== ENCOUNTER 2023-07-22 11:10 | Outpatient (RCR) | payer SELFPAY ==
[2023-06-25 00:04] VITALS: BP 119/68; PULSE 81; RESP 20
[2023-06-29 11:03] VITALS: BP 119/72; PULSE 84; O2SAT 92
[2023-07-01 11:02] VITALS: BP 124/74; PULSE 87; O2SAT 92
[2023-07-13 11:06] VITALS: BP 134/76; PULSE 80
[2023-07-15 10:58] VITALS: BP 128/76; PULSE 91; O2SAT 92
[2023-07-20 11:17] VITALS: BP 134/78; PULSE 84
[2023-07-22 11:37] VITALS: BP 132/79; PULSE 81
== END 2023-07-25 23:59 | disposition home or self-care (01) ==
LOC: CR 11:10
PROVIDERS: PCP Family Medicine; Visit Provider Internal Medicine Cardiovascular Disease
DX: R69 Illness, unspecified (principal)

== ENCOUNTER 2023-08-24 11:22 | Outpatient (RCR) | payer SELFPAY ==
[2023-07-29 11:27] VITALS: BP 116/72; PULSE 92; O2SAT 92
[2023-08-03 12:05] VITALS: BP 147/77; PULSE 76
[2023-08-05 10:56] VITALS: BP 131/78; PULSE 80; O2SAT 90
[2023-08-10 11:19] VITALS: BP 127/77; PULSE 83; O2SAT 90
[2023-08-12 11:02] VITALS: BP 122/77; PULSE 78; O2SAT 92
[2023-08-17 11:02] VITALS: BP 122/78; PULSE 90; O2SAT 93
[2023-08-19 11:28] VITALS: BP 132/73; PULSE 91; O2SAT 90
[2023-08-24 11:27] VITALS: BP 116/70; PULSE 85; O2SAT 94
== END 2023-08-24 23:59 | disposition home or self-care (01) ==
LOC: CR 11:22
PROVIDERS: PCP Family Medicine; Visit Provider Internal Medicine Cardiovascular Disease
DX: R69 Illness, unspecified (principal)

== ENCOUNTER 2023-09-16 09:39 | Outpatient (REF) | payer MEDICARE, BC, SELFPAY ==
[2023-09-16 14:48] LABS: Abs Immature Grans 0.02 10^3/uL (0.0-0.06); Absolute Basophil Count 0.07 10^3/uL (0.0-0.2); Absolute Eosinophil Count 0.29 10^3/uL (0.0-0.7); Absolute Lymphocyte Count 1.09 10^3/uL (1.2-3.4); Absolute Monocyte Count 0.87 10^3/uL (0.1-0.8); Absolute Neutrophil Count 5.11 10^3/uL (1.2-6.7); Basophils % 0.9 %; Eosinophils % 3.9 %; HCT 47.7 % (40.0-50.0); HGB 14.9 g/dL (13.5-17.5); Immature Grans % 0.3 %; Lymphocytes % 14.6 %; MCH 31.1 pg (27.0-33.0); MCHC 31.2 % (32.0-36.0); MCV 100 fL (80-95); MPV 12.5 fL (8.0-11.0); Monocytes % 11.7 %; Neutrophils % 68.6 %; Platelet Count 222 10^3/uL (130-400); RBC 4.79 10^6/uL (4.36-5.78); RDW 12.3 % (11.8-14.1); RDW-SD 45.7 fL; WBC 7.45 10^3/uL (4.4-10.8)
[2023-09-16 15:04] LABS: Hemoglobin A1C 5.9 % (<5.7)
[2023-09-16 15:15] LABS: ALT 45 U/L (16-63); AST 37 U/L (15-37); Albumin 4.2 g/dL (3.4-5.0); Alkaline Phosphatase 107 U/L (46-116); Anion Gap 7.6 mmol/L (3-11); BUN 23 mg/dL (7-18); Bilirubin, Total 0.6 mg/dL (0.2-1.0); CO2 30.4 mmol/L (21.0-32.0); CREATININE 1.2 mg/dL (0.70-1.30); Calcium 9.4 mg/dL (8.5-10.1); Calculated LDL 121 mg/dL (<100); Chloride 102 mmol/L (98-107); Cholesterol 198 mg/dL (<200); Estimated GFR 65.87 (mL/min/1.73m2); Glucose 86 mg/dL (74-106); HDL Cholesterol 53 mg/dL (40-60); Potassium 5.4 mmol/L (3.5-5.1); Sodium 140 mmol/L (136-145); Total Protein 7.4 g/dL (6.4-8.2); Triglyceride 120 mg/dL (<150)
[2023-09-16 22:20] LABS: PSA, Diagnostic 0.1 ng/mL (<=4.5)
== END 2023-09-16 09:40 | disposition home or self-care (01) ==
LOC: NCHCN 09:39
PROVIDERS: PCP Family Medicine; Visit Provider Family Medicine
DX: I10 Essential (primary) hypertension (principal); R73.03 Prediabetes; E78.00 Pure hypercholesterolemia, unspecified; E55.9 Vitamin D deficiency, unspecified; R31.9 Hematuria, unspecified
CPT/HCPCS: 80053; 80061; 82306; 83036; 84153; 85025

== ENCOUNTER 2023-09-23 11:01 | Outpatient (RCR) | payer SELFPAY ==
[2023-08-25 00:30] VITALS: BP 116/70; PULSE 85
[2023-09-02 11:37] VITALS: BP 133/88; PULSE 91; O2SAT 93
[2023-09-07 11:00] VITALS: BP 127/76; PULSE 88; O2SAT 95
[2023-09-09 11:23] VITALS: BP 130/76; PULSE 83
[2023-09-14 11:21] VITALS: BP 141/83; PULSE 89; O2SAT 94
[2023-09-16 11:24] VITALS: BP 122/76; PULSE 87; O2SAT 91
[2023-09-21 11:23] VITALS: BP 125/77; PULSE 83
[2023-09-23 10:59] VITALS: BP 138/75; PULSE 87
== END 2023-09-24 23:59 | disposition home or self-care (01) ==
LOC: CR 11:01
PROVIDERS: PCP Family Medicine; Visit Provider Internal Medicine Cardiovascular Disease
DX: R69 Illness, unspecified (principal)

== ENCOUNTER → 2023-10-18 01:59 | Outpatient (CLI) | payer MEDICARE, BC, SELFPAY ==
--- NOTE | 2023-10-18 | DI.RAD_ITS ---
Exam(s) XR CHEST 2V PA LATERAL EXAM: XR CHEST 2V PA LATERAL CLINICAL HISTORY: CHRONIC OBSTRUC. LUNG DISEASE J44.9 TECHNIQUE: 2D digital imaging was performed of the chest. Two images were obtained. PA and lateral views were obtained. COMPARISON: CR CHEST 2 VIEWS PA,LAT from 09/23/2016 FINDINGS: MEDIASTINUM: Normal. HEART: Normal. PULMONARY VASCULATURE: Normal. LUNGS: There is linear scarring seen in the left lung base which is unchanged. There is a new infilt rate seen in the right lower lobe. The left lung is otherwise clear. PLEURAL SPACE: No pleural effusion or pneumothorax. BONE:Within normal limits for the patient's age. OTHER FINDINGS:There is unchanged elevation of the left hemidiaphragm. IMPRESSION: New infiltrate in the right lung base. This is nonspecific and may represent atelectasis or pneumoni a. Please correlate clinically. DATA REPOSITORY: RADIATION DOSE DELIVERED:
== END ==
PROVIDERS: PCP Family Medicine; Visit Provider Family Medicine
DX: J44.9 Chronic obstructive pulmonary disease, unspecified (principal)
CPT/HCPCS: 71046

== ENCOUNTER 2023-10-19 03:33 | Outpatient (CLI) | payer MEDICARE, BC, SELFPAY ==
[2023-10-19] MEDS: Inhaler, Assist Device 1 EACH MC (09:27)
[2023-10-19] MEDS: Levalbuterol HFA 15 GM INH 4 PUFF IH (09:27)
--- NOTE | 2023-11-01 15:53 | W.PFT ---
Date of service: 10/19/23 Time of Service: 07:59 Pulmonary Function Test Result Requesting Provider Katheryn Kaufman Indications: COPD Interpretation Spirometry: Normal FEV1/FVC, but severely decreased FEV1 ad FVC Lung Volumes: Moderate to severe decrease in lung volumes w/ air trapping Diffusion Capacity: Moderate decrease in diffusion Impression Severe obstructive ventilatory defect w/ reversibilty after albuterol. Moderate restrictive ventilatory defect and moderate decrease in diffusion. Flow volume curve suggests mixed disease. Clinical Correlation therefore is recommended.
== END 2023-10-19 03:34 | disposition home or self-care (01) ==
LOC: RT 03:33
PROVIDERS: PCP Family Medicine; Visit Provider Physician Assistant Surgical
DX: J44.9 Chronic obstructive pulmonary disease, unspecified (principal)
CPT/HCPCS: 00123; 94060; 94726; 94729

== ENCOUNTER 2023-10-21 11:00 | Outpatient (RCR) | payer SELFPAY ==
[2023-09-28 11:03] VITALS: BP 118/73; PULSE 84; O2SAT 90
[2023-10-05 11:57] VITALS: BP 112/74; PULSE 88; O2SAT 92
[2023-10-21 13:25] VITALS: PULSE 68; O2SAT 94
== END 2023-10-24 23:59 | disposition home or self-care (01) ==
LOC: CR 11:00
PROVIDERS: PCP Family Medicine; Visit Provider Internal Medicine Cardiovascular Disease
DX: R69 Illness, unspecified (principal)

== ENCOUNTER 2023-11-18 11:03 | Outpatient (RCR) | payer SELFPAY ==
[2023-10-26 11:23] VITALS: BP 142/84; PULSE 70; O2SAT 91
[2023-11-02 12:42] VITALS: BP 120/75; PULSE 70
[2023-11-11 13:34] VITALS: BP 124/80; PULSE 74; O2SAT 92
[2023-11-16 14:05] VITALS: BP 153/87; PULSE 74; O2SAT 93
[2023-11-18 10:57] VITALS: BP 147/87; PULSE 78; O2SAT 93
== END 2023-11-24 23:59 | disposition home or self-care (01) ==
LOC: CR 11:03
PROVIDERS: PCP Family Medicine; Visit Provider Internal Medicine Cardiovascular Disease
DX: R69 Illness, unspecified (principal)

== ENCOUNTER 2023-12-23 11:09 | Outpatient (RCR) | payer SELFPAY ==
[2023-11-25 00:34] VITALS: BP 147/87; PULSE 78
[2023-11-25 10:54] VITALS: BP 127/80; PULSE 80
[2023-11-30 13:57] VITALS: BP 134/83; PULSE 76
[2023-12-02 11:40] VITALS: BP 133/79; PULSE 80; O2SAT 91
[2023-12-07 11:06] VITALS: BP 139/91; PULSE 70
[2023-12-14 11:15] VITALS: BP 167/90; PULSE 71
[2023-12-14 11:58] VITALS: BP 134/88; PULSE 89; O2SAT 91
[2023-12-16 11:06] VITALS: BP 139/83; PULSE 67; O2SAT 92
[2023-12-21 11:24] VITALS: BP 129/89; PULSE 72; O2SAT 94
[2023-12-23 11:24] VITALS: BP 132/81; PULSE 73; O2SAT 94
== END 2023-12-25 23:59 | disposition home or self-care (01) ==
LOC: CR 11:09
PROVIDERS: PCP Family Medicine; Visit Provider Internal Medicine Cardiovascular Disease
DX: R69 Illness, unspecified (principal)

== ENCOUNTER 2024-01-18 13:02 | Outpatient (RCR) | payer SELFPAY ==
[2023-12-26 00:32] VITALS: BP 147/87; PULSE 78
[2023-12-28 11:07] VITALS: BP 139/84; PULSE 80; O2SAT 94
[2023-12-30 11:44] VITALS: BP 142/88; PULSE 66; O2SAT 92
[2024-01-06 13:31] VITALS: BP 138/83; PULSE 74
[2024-01-11 11:53] VITALS: BP 151/87; PULSE 68
[2024-01-18 13:25] VITALS: BP 137/86; PULSE 66
== END 2024-01-24 23:59 | disposition home or self-care (01) ==
LOC: CR 13:02
PROVIDERS: PCP Family Medicine; Visit Provider Internal Medicine Cardiovascular Disease
DX: R69 Illness, unspecified (principal)

== ENCOUNTER 2024-02-09 02:16 | Outpatient (CLI) | payer MEDICARE, BC, SELFPAY ==
--- NOTE | 2024-02-09 14:55 | DI.CT_ITS ---
Exam(s) CT CHEST WO EXAM: CT CHEST WO CLINICAL HISTORY: RLL OPACITY,LOBULATED PLEURAL EFFUSION,ATELECTASIS RT LUNG,J98.11,J90. TECHNIQUE: Multi planar reconstructions were performed. CONTRAST MATERIAL: None COMPARISON: CT CHEST WITHOUT CONTRAST from 03/12/2015 CR XR CHEST 2V PA LATERAL from 10/18/[address] CHEST WO from 11/09/2023 FINDINGS: CHEST: LUNGS: Again noted is a previously described sub pulmonic collection on the right side which is not c ompletely included in the field of view of this chest study as the images do not descend adequately i nto the abdomen for complete coverage of this intrathoracic finding. This measures approximately 9 c m craniocaudal x 12.8 cm maximum AP measurement x 13.5 cm maximum width.. Just anterior to this is a nother similar but smaller fluid density collection measuring 4.6 cm wide by 3.1 cm AP by 1.6 cm cran iocaudal. These collections have not decreased in size; indeed, the larger appears slightly larger t prince previous. There is some platelike atelectasis in the right lower lobe just above this finding ag ain noted. There is no free layering pleural effusion on either side. On the opposite-left side the re is some elevation of the left hemidiaphragm again noted. Pleural base density at the lingular lev el is noted which exhibits fat density and therefore benign. MEDIASTINUM: There is no obvious hilar nor mediastinal adenopathy. No subcarinal adenopathy. No axil gray adenopathy. Mild bilateral gynecomastia is noted.No obvious axillary adenopathy CARDIAC: Heart size is normal. There is no pericardial effusion.The diameter of the ascending thorac ic aorta is again noted be enlarged, measuring 4 0.2 cm, unchanged. The diameter of the mid aortic a rch is again 2.9 cm. The diameter of the descending thoracic aorta remains upper normal at 2.6 cm. VISUALIZED UPPER ABDOMEN:There is embolization lytton material in what is probably the distal splenic a rtery. There is a density in this region measuring 9.5 x 6.7 cm which is only partially included in the field of view of this study and is probably spleen. OSSEOUS: Healed fracture of the left 6 rib anterolaterally is noted. No acute fractures evident. N o significant osseous lesions.. IMPRESSION: 1. Again noted is a previously described large well-defined right-sided fluid collection measuring ap proximately 13.5 cm wide by 12.8 cm AP by 9 cm craniocaudal, relatively similar in size to study of 0 11/09/2023 and there is also again noted and unchanged slightly smaller fluid collection just anterior to this larger collection. This collection appears to be supple and there is platelike atelectasis in the adjacent right lung base. There is no layering pleural effusion. If clinically indicated this large right-sided fluid collection can be considered for percutaneous dr dewey so as to allow better expansion of the right lung. 2. No new infiltrates nor ominous pulmonary nodules nor intrathoracic adenopathy. 3. There is embolization coil material noted in the splenic artery and there is a healed fracture of of the left 6 rib. Left upper quadrant abdominal findings again noted, probably related to post trau ma sequelae. Please note that this chest only study does not include sufficient amount of the abdome n for accurate interpretation. RADIATION DOSE DELIVERED: 321.48mGy.cm Total DLP DATA REPOSITORY: All CT scans at this facility are submitted to the National Radiology Data Registry (NRDR) Dose Index Registry (DIR) with the [employer] ([employer]). RADIATION OPTIMIZATION: All CT scans at this facility use at least one of these dose optimization te chniques: automated exposure control; mA and/or kV adjustment per patient size (includes targeted exa ms where dose is matched to clinical indication); or iterative reconstruction.
== END 2024-02-09 02:36 ==
PROVIDERS: PCP Family Medicine; Visit Provider Internal Medicine Critical Care Medicine
DX: J98.11 Atelectasis (principal)
CPT/HCPCS: 71250

== ENCOUNTER → 2024-02-17 09:32 | Outpatient (BNVA) | payer MEDICARE, BC, SELFPAY | PROVIDERS: PCP Family Medicine; Referring Provider Family Medicine; Visit Provider Physician Assistant Surgical | DX: J44.9 Chronic obstructive pulmonary disease, unspecified (principal); J98.6 Disorders of diaphragm; Z87.891 Personal history of nicotine dependence | CPT/HCPCS: 99215 ==

== ENCOUNTER 2024-02-22 11:01 | Outpatient (RCR) | payer SELFPAY ==
[2024-02-01 14:51] VITALS: BP 146/80; PULSE 62; O2SAT 93
[2024-02-08 11:00] VITALS: BP 151/97; PULSE 72; O2SAT 94
[2024-02-10 11:00] VITALS: BP 184/94; PULSE 73; O2SAT 93
[2024-02-15 11:35] VITALS: BP 152/89; PULSE 82; O2SAT 94
[2024-02-22 13:25] VITALS: BP 143/91; PULSE 72
== END 2024-02-24 23:59 | disposition home or self-care (01) ==
LOC: CR 11:01
PROVIDERS: PCP Family Medicine; Visit Provider Internal Medicine Cardiovascular Disease
DX: R69 Illness, unspecified (principal)

== ENCOUNTER 2024-03-02 11:21 | Outpatient (RCR) | payer SELFPAY ==
[2024-02-25 00:16] VITALS: BP 143/91; PULSE 72
[2024-02-29 10:56] VITALS: BP 154/86; PULSE 83; O2SAT 92
[2024-03-02 11:24] VITALS: BP 161/86; PULSE 72; O2SAT 92
== END 2024-03-25 23:59 | disposition home or self-care (01) ==
LOC: CR 11:21
PROVIDERS: PCP Family Medicine; Visit Provider Internal Medicine Cardiovascular Disease
DX: R69 Illness, unspecified (principal)

== ENCOUNTER 2024-04-20 11:07 | Outpatient (RCR) | payer SELFPAY ==
[2024-03-26 00:07] VITALS: BP 143/91; PULSE 72
[2024-04-11 11:07] VITALS: BP 145/94; PULSE 72
[2024-04-13 11:22] VITALS: BP 125/79; PULSE 78; O2SAT 95
[2024-04-20 11:08] VITALS: BP 151/82; PULSE 67; O2SAT 93
== END 2024-04-25 23:59 | disposition home or self-care (01) ==
LOC: CR 11:07
PROVIDERS: PCP Family Medicine; Visit Provider Internal Medicine Cardiovascular Disease
DX: R69 Illness, unspecified (principal)

== ENCOUNTER → 2024-05-17 10:35 | Outpatient (BNVA) | payer MEDICARE, BC, SELFPAY | PROVIDERS: PCP Family Medicine; Referring Provider Family Medicine; Visit Provider Physician Assistant Surgical | DX: J44.9 Chronic obstructive pulmonary disease, unspecified (principal); J98.6 Disorders of diaphragm; Z87.891 Personal history of nicotine dependence | CPT/HCPCS: 99214 ==

== ENCOUNTER 2024-05-22 15:18 | Outpatient (REF) | payer MEDICARE, BC, SELFPAY ==
[2024-05-22 15:44] LABS: Abs Immature Grans 0.01 10^3/uL (0.0-0.06); Absolute Basophil Count 0.06 10^3/uL (0.0-0.2); Absolute Eosinophil Count 0.23 10^3/uL (0.0-0.7); Absolute Monocyte Count 0.66 10^3/uL (0.1-0.8); Absolute Neutrophil Count 4.13 10^3/uL (1.2-6.7); Eosinophils % 3.7 %; HCT 47.1 % (40.0-50.0); HGB 14.6 g/dL (13.5-17.5); Immature Grans % 0.2 %; Lymphocytes % 17.8 %; MCH 30.7 pg (27.0-33.0); MCV 99 fL (80-95); MPV 12.4 fL (8.0-11.0); Monocytes % 10.7 %; Neutrophils % 66.6 %; Platelet Count 210 10^3/uL (130-400); RBC 4.76 10^6/uL (4.36-5.78); RDW 12.3 % (11.8-14.1); RDW-SD 45.4 fL; WBC 6.19 10^3/uL (4.4-10.8)
[2024-05-22 16:33] LABS: ALT 39 U/L (16-63); AST 24 U/L (15-37); Alkaline Phosphatase 100 U/L (46-116); Anion Gap 7.2 mmol/L (3-11); BUN 22 mg/dL (7-18); Bilirubin, Total 0.67 mg/dL (0.2-1.0); CO2 30.8 mmol/L (21.0-32.0); CREATININE 1.1 mg/dL (0.70-1.30); Calcium 9.7 mg/dL (8.5-10.1); Calculated LDL 108 mg/dL (<100); Chloride 106 mmol/L (98-107); Cholesterol 180 mg/dL (<200); Estimated GFR 72.67 (mL/min/1.73m2); Glucose 91 mg/dL (74-106); HDL Cholesterol 50 mg/dL (40-60); Potassium 4.6 mmol/L (3.5-5.1); Sodium 144 mmol/L (136-145); Total Protein 7.2 g/dL (6.4-8.2); Triglyceride 110 mg/dL (<150); Vitamin D 25 Total 24.7 ng/mL (30-100)
== END 2024-05-22 15:19 | disposition home or self-care (01) ==
LOC: NCHCN 15:18
PROVIDERS: PCP Family Medicine; Visit Provider Family Medicine
DX: E55.9 Vitamin D deficiency, unspecified (principal); D64.9 Anemia, unspecified; I10 Essential (primary) hypertension
CPT/HCPCS: 80053; 80061; 82306; 85025

== ENCOUNTER 2024-05-25 11:04 | Outpatient (RCR) | payer SELFPAY ==
[2024-04-26 00:06] VITALS: BP 143/91; PULSE 72
[2024-05-02 11:22] VITALS: BP 135/73; PULSE 69; O2SAT 91
[2024-05-09 11:07] VITALS: BP 132/71; PULSE 75; O2SAT 92
[2024-05-11 11:22] VITALS: BP 149/90; PULSE 76; O2SAT 94
[2024-05-16 11:09] VITALS: BP 142/85; PULSE 74; O2SAT 93
[2024-05-18 11:04] VITALS: BP 142/91; PULSE 79
[2024-05-25 11:06] VITALS: BP 147/87; PULSE 82; O2SAT 92
== END 2024-05-26 23:59 | disposition home or self-care (01) ==
LOC: CR 11:04
PROVIDERS: PCP Family Medicine; Visit Provider Internal Medicine Cardiovascular Disease
DX: R69 Illness, unspecified (principal)

== ENCOUNTER 2024-06-20 11:21 | Outpatient (RCR) | payer SELFPAY ==
[2024-05-30 15:11] VITALS: BP 165/86; PULSE 98; O2SAT 93
[2024-06-06 11:24] VITALS: BP 130/81; PULSE 83
[2024-06-15 11:02] VITALS: BP 139/85; PULSE 77; O2SAT 94
[2024-06-20 11:23] VITALS: BP 143/81; PULSE 76
== END 2024-06-23 23:59 | disposition home or self-care (01) ==
LOC: CR 11:21
PROVIDERS: PCP Family Medicine; Visit Provider Internal Medicine Cardiovascular Disease
DX: R69 Illness, unspecified (principal)

== ENCOUNTER 2024-07-20 11:02 | Outpatient (RCR) | payer SELFPAY ==
[2024-06-24 00:20] VITALS: BP 143/81; PULSE 76
[2024-07-04 11:20] VITALS: BP 158/92; PULSE 76; O2SAT 93
[2024-07-06 11:01] VITALS: BP 144/85; PULSE 71; O2SAT 94
[2024-07-11 11:29] VITALS: BP 148/82; PULSE 68; O2SAT 94
[2024-07-13 11:19] VITALS: BP 137/80; PULSE 73; O2SAT 92
[2024-07-18 11:05] VITALS: BP 142/90; PULSE 80; O2SAT 94
[2024-07-20 11:07] VITALS: BP 155/90; PULSE 68; O2SAT 93
== END 2024-07-24 23:59 | disposition home or self-care (01) ==
LOC: CR 11:02
PROVIDERS: PCP Family Medicine; Visit Provider Internal Medicine Cardiovascular Disease
DX: R69 Illness, unspecified (principal)

== ENCOUNTER 2024-08-03 11:00 | Outpatient (RCR) | payer SELFPAY ==
[2024-07-25 00:20] VITALS: BP 143/81; PULSE 76
[2024-08-01 11:14] VITALS: BP 156/87; PULSE 72; O2SAT 92
[2024-08-03 11:00] VITALS: BP 127/79; PULSE 90; O2SAT 94
== END 2024-08-23 23:59 | disposition home or self-care (01) ==
LOC: CR 11:00
PROVIDERS: PCP Family Medicine; Visit Provider Internal Medicine Cardiovascular Disease

== ENCOUNTER 2024-09-21 10:52 | Outpatient (RCR) | payer SELFPAY ==
[2024-08-24 00:21] VITALS: BP 143/81; PULSE 76
[2024-09-05 13:24] VITALS: BP 133/83; PULSE 81; O2SAT 94
[2024-09-07 13:33] VITALS: BP 165/84; PULSE 78; O2SAT 94
[2024-09-12 13:08] VITALS: BP 174/89; PULSE 66; O2SAT 95
[2024-09-14 11:21] VITALS: BP 145/79; PULSE 69; O2SAT 94
[2024-09-19 12:51] VITALS: BP 164/91; PULSE 69; O2SAT 92
[2024-09-21 13:49] VITALS: BP 158/82; PULSE 67
== END 2024-09-23 23:59 | disposition home or self-care (01) ==
LOC: CR 10:52
PROVIDERS: PCP Family Medicine; Visit Provider Internal Medicine Cardiovascular Disease
DX: R69 Illness, unspecified (principal)

== ENCOUNTER → 2024-10-05 10:25 | Outpatient (BNVA) | payer MEDICARE, BC, SELFPAY | PROVIDERS: PCP Family Medicine; Referring Provider Family Medicine; Visit Provider Physical Therapy Assistant | DX: Z12.11 Encounter for screening for malignant neoplasm of colon (principal); Z86.0109 Personal history of other colon polyps | CPT/HCPCS: S0285 ==

== ENCOUNTER 2024-10-16 07:28 | Day surgery (SDC) | payer MEDICARE, BC, SELFPAY ==
--- NOTE | 2024-10-15 20:34 | W.PM.DSUDISC ---
Date of service: 10/16/24 Discharge Plan Disposition Patient Disposition: Home Condition: Good Discharge Details Reason For Visit: screening colonoscopy Attending Provider: Saji Dick Primary Care Provider: Laura Vincent Home Meds and New Rx's Prescriptions: Continued cholecalciferol (vitamin D3) 125 mcg (5,000 unit) capsule 125 mcg PO DAILY albuterol sulfate 90 mcg/actuation HFA aerosol inhaler 2 puff inhalation QID PRN (Reason: shortness of breath or wheezing) Qty: 8.5 12RF cetirizine [Zyrtec] 10 mg tablet 10 mg PO DAILY PRN levetiracetam 250 mg tablet 250 mg PO BID triamcinolone acetonide 0.1 % ointment See Rx Instructions topical DIRECTED Rx Instructions: topically as directed; Trelegy Ellipta 100-62.5-25 mcg blister with device 1 inh inhalation DAILY Qty: 60 12RF atorvastatin [Lipitor] 80 MG tablet 80 mg PO DAILY acetaminophen [Tylenol] 325 MG tablet 650 mg PO Q4H PRN PRNQty: 90 0RF lisinopril 20 MG tablet 20 mg PO DAILY Held Xarelto 20 MG tablet 20 mg PO DAILY Hold Instructions: Resume on 10/17/24. Discontinued bisacodyl [Dulcolax (bisacodyl)] 5 mg tablet,delayed release (DR/EC) 5 mg PO ONCE Qty: 4 0RF Rx Instructions: Take per colonoscopy instructions provided by ordering providers office polyethylene glycol 3350 17 gram/dose powder 17 g PO ONCE Qty: 238 0RF Rx Instructions: Take per colonoscopy instructions provided by ordering providers office Discharge Instructions Instructions: Colon polyps, Diverticulosis Additional Instructions: Saji, it was very nice meeting you today, and I hope you feel well this afternoon. Things went very smoothly. I did find, and removed a total of 5 polyps today. 1 of these was medium in size, the others were quite small. All of these will be sent off for testing since polyps do come in different types, and we use that information to figure out the timing of your next colonoscopy. These results will take about a week or 2 for me to get back, but once my office has that information we will be in touch with other recommendations. Because of the polyp removal, I would like you to hold your Xarelto until tomorrow. At that point you, you can resume it as you normally take it. Incidentally, you also have some diverticulosis. I will attach some basic information here about colon rectal polyps, as well as diverticulosis. If you need anything, or have any questions at all, please do not hesitate to ask at any time. 1. If tolerated, consume a soft, low fiber diet for 1-2 days. 2[address] Do not drive, drink alcohol, operate machinery, make critical decisions, or do activities that require coordination or balance for 24 hours. 3. Because air was put into your colon during the procedure, expelling air from your rectum (passing gas or farting) is normal. 4. You may not have a bowel movement for 1-3 days because of the colonoscopy prep. This is normal. 5. Go directly to the emergency room if you notice any of the following: Develop chills (warm to touch), or if you have a thermometer and your temperature is above 101 Difficulty breathing or difficultly swallowing Persistent vomiting Severe abdominal pain, other than gas cramps Severe chest pain Black, tarry stools Any bleeding ? exceeding one tablespoon 6. Call your physician if the site where your intravenous was started becomes red, swollen, painful, and warm to touch. 7. Your physician has reviewed your pre-procedure medications. Please continue to take those medications as previously ordered. You will be given specific information/education regarding any changes to your medications before leaving. Stand Alone Forms: Anesthesia Discharge InstRohit Morrison (DSU) Activity:: Activity as Tolerated Diet:: As Tolerated Discharge Orders Discharge Orders: Discharge Order (Routine); Ordered 10/15/24 Ordered By: Saji Dick DS: Diagnosis Discharge Diagnosis (1) Encounter for screening colonoscopy: Status: Acute Asessment and Plan: Follow-up on polypectomy results
--- NOTE | 2024-10-15 20:36 | COLE_ITS ---
Date of service: 10/16/24 Time of Service: 10:15 Colonoscopy Report Date of procedure: 10/16/24 Pre-op diagnosis general: screening colonoscopy Post-op diagnosis procedure note: other (Colon polyps, diverticulosis) Procedure: colonoscopy with polypectomy Surgeon: Saji Dick Anesthesia Type: General:No Airway Estimated blood loss (mL): 5 Pathology: other (0.5 cm pedunculated polyp at 60 cm, 0.25 cm flat polyp in the cecum, 0.25 cm flat polyp in the ascending colon, 0.25 cm flat polyps at 130 cm x 2 (single specimen)) Complications: None Disposition: same day Indications: Saji is a 69 year old man who needs a screening colonocsopy Prep: Miralax/Dulcolax Procedure Start Time: :06 Procedure End Time: :51 Retraction Time: 22 Findings: Left-sided diverticulosis, 0.5 cm pedunculated polyp at 60 cm, 0.25 cm flat polyp in the cecum, 0.25 cm flat polyp in the ascending colon, 0.25 cm flat polyps at 130 cm x 2 (single specimen) Procedure Description: After the induction of anesthesia, and with the patient in left lateral decubitus position, I began by performing an external anorectal exam.? Perineum and skin were normal, as was the anal verge.? There was no evidence of external hemorrhoids.? Next, I performed a digital rectal exam.? I did not appreciate any abnormal findings.? Next, I advanced a colonoscope into the rectal vault.? I performed retroflexion.? This appeared normal.? Using irrigation, I then advan rory the colonoscope beyond the rectal folds and into the sigmoid colon before advancing towards the cecum.? Around 60 cm from the anal verge was a 0.5 cm pedunculated polyp. This was removed with a energize snare polypectomy. There was no bleeding. The specimen was too big to retrieve through the colonoscope, so this was brought out in a retrograde fashion. Camera was reinserted, and advanced back up to the polypectomy site. It was hemostatic.? There is sigmoid and left-sided diverticulosis. Advancing through the ascending colon was quite challenging, and required multiple efforts at repositioning and abdominal wall support to it get down into the cecum proper. The scope was noted to be in the cecum by identification of the ileocecal valve and appendiceal orifice. Within the cecum was a 0.25 cm polyp. This was removed with cold forceps without any difficulty. I then began withdrawing the colonoscope using repeated irrigation as necessary for full evaluation of the colonic mucosa. Another 0.25 cm flat polyp was found in the ascending colon. This was also removed with cold forceps. 2 more polyps were found right at 130 cm beyond the anal verge. These were also flat, and also removed with cold forceps. These were sent as a single specimen. Again seen during removal of the camera was extensive left-sided and sigmoid diverticulosis. ?Once the scope was withdrawn to the level of the rectum, great care was taken to examine portions of the rectal folds.? Finally, the scope was withdrawn and the patient was brought to the same-day surgery recovery unit as the anesthetic wore off. ?The findings and instructions were shared with the patient prior to discharge. [place] Bowel Prep [place] Bowel Prep Right Colon: 3 Left Colon: 3 Transverse Colon: 3 Total Score: 9
[2024-10-16 07:35] VITALS: BP 122/74; PULSE 80; RESP 16; TEMP 36.5; O2SAT 93
--- NOTE | 2024-10-16 08:08 | W.ANESPRE ---
General Info Date of Service Date Performed: 10/16/24 Height: 5 ft 9.5 in Weight: 138.3 kg Body Mass Index (BMI): 44.4 Surgical Procedure: Operation Date: 10/16/24 09:05 Proposed Procedure Side Surgeon tate Dick MD Meds Allergies and Home Medications Allergies Allergy/AdvReac Type Severity Reaction Status Date / Time lisinopril Allergy Mild Skin Rash Verified 10/16/24 07:51 Home Medication ?Medication ?Instructions ?Recorded atorvastatin 80 mg tablet (Lipitor) 80 mg PO DAILY 10/07/12 acetaminophen 325 mg tablet 650 mg (2 x 325 mg) PO Q4H PRN PRN 07/18/14 (Tylenol) #90 tabs rivaroxaban 20 mg tablet (Xarelto) 20 mg PO DAILY 02/14/16 lisinopril 20 mg tablet 20 mg PO DAILY 10/09/17 levetiracetam 250 mg tablet 250 mg PO BID 09/30/23 triamcinolone acetonide 0.1 % See Rx Instructions topical 09/30/23 topical ointment DIRECTED albuterol sulfate 90 mcg/actuation 2 puff inhalation QID PRN 10/18/23 aerosol inhaler shortness of breath or wheezing #8.5 grams cholecalciferol (vitamin D3) 125 125 mcg PO DAILY 10/18/23 mcg (5,000 unit) capsule fluticasone fur. 100 mcg-umeclid 1 inh inhalation DAILY #60 ea 10/25/23 62.5 mcg-vilant 25 mcg inhalat.powder (Trelegy Ellipta) cetirizine 10 mg tablet (Zyrtec) 10 mg PO DAILY PRN 11/17/23 Current Visit Medications: Current Medications Generic Name Dose Route Start Last Admin Trade Name Freq PRN Reason Stop Dose Admin Ringer's Solution 1,000 mls @ 80 mls/hr 10/16/24 06:00 IV 10/16/24 23:59 [facility]ION [facility] IV Miscellaneous Supplies 1 each 10/16/24 06:00 Iv Access IV 10/16/24 23:59 DIRECTED JUAN Ondansetron HCl 4 mg 10/15/24 20:37 Ondansetron 4 Mg/2 Ml Vial IVP 11/14/24 20:36 Q4H PRN PRN Nausea / Vomiting Sodium Chloride 0 ml 10/16/24 06:00 Normal Saline Flush 10 Ml Syr IV 10/16/24 23:59 PRN PRN Sodium Chloride 0 ml 10/16/24 06:00 Normal Saline 10 Ml Vial IJ 10/16/24 23:59 DIRECTED PRN Sterile Water 0 ml 10/16/24 06:00 Water,Injection,Sterile 10 Ml Vial IJ 10/16/24 23:59 DIRECTED PRN PFSH Active Problems Active Problems: Problem Status Onset Code Encounter for screening colonoscopy Acute Z12.11 Atelectasis of right lung Acute J98.11 Restrictive ventilatory defect Acute R94.2 Former cigarette smoker Acute Z87.891 Elevated hemidiaphragm Acute J98.6 Impacted cerumen, bilateral Acute H61.23 Impacted cerumen of left ear Acute H61.22 FDC (current) use of anticoagulants Acute Z79.01 Prediabetes Acute R73.03 Anterior epistaxis Acute R04.0 Seizure Acute R56.9 Rectal polyp Acute K62.1 Thromboembolism of vein Acute I82.90 Saddle embolus of pulmonary artery Acute I26.92 Essential hypertension Acute I10 Hearing loss Acute H91.90 Anemia Chronic D64.9 Obesity Chronic E66.9 Pure hypercholesterolemia Acute E78.00 Vitamin D deficiency Acute E55.9 Benign neoplasm of adrenal gland Acute D35.00 Tinea corporis Acute B35.4 Absence seizure Chronic G40.A09 Hypercholesteremia Chronic E78.0 COPD (chronic obstructive pulmonary disease) Chronic J44.9 Administration of long-term prophylactic antibiotics Acute 07/04/14 Z79.2 Splenic abscess Acute 07/04/14 D73.3 Loculated pleural effusion Chronic J90 Iron deficiency anemia Chronic D50.9 H/O deep venous thrombosis Chronic Z86.718 Healed or old pulmonary embolism Chronic Z86.711 Essential hypertension Chronic I10 History of tobacco use Chronic Z87.891 DVT (deep venous thrombosis) Acute I82.409 Discharge planning issues Acute Z02.9 Medical History Medical History Constipation Surgical History Surgical History Hx of vasectomy Tobacco Smoking/Tobacco Use Status: Former Tobacco Use Alcohol Alcohol Intake: former Substance Use Substance use: Current Sobriety Substance use type: does not use Vital Signs and Lab Results Vital Signs Most Recent Vital Signs in EMR: Most Recent Vital Signs Temp Pulse Resp BP Pulse Ox 36.5 C 80 16 122/74 93 10/16/24 07:35 10/16/24 07:35 10/16/24 07:35 10/16/24 07:35 10/16/24 07:35 Imaging and Studies Imaging and Studies Study information below may be from another EMR and interpreted by another provider. Please see original notes in EMR for more complete details. Stress Test Summary: Date of study: 02/28/2016 *PATIENT PRESENTATION* Height: 175.3cm ((69in) ) Blood Pressure: Weight: 140kg ((308lb) ) BSA: 2.68m^2 Ordering physician: Johnny Wilson Impressions: Normal study after maximal exercise with no inducible ischemia. Reduced functional capacity. Summary: 1. Stress: The target heart rate was achieved. Echocardiogram Summary: 10/18/14 *STUDY CONCLUSIONS* Summary: 1. Left ventricle: The cavity size was normal. Wall thickness was normal. Systolic function was normal. The estimated ejection fraction was 60%. Wall motion was normal; there were no regional wall motion abnormalities. There was an increased relative contribution of atrial contraction to ventricular filling. 2. Mitral valve: Moderate regurgitation. 3. Right ventricle: The cavity size was normal. Wall thickness was normal. Systolic function was normal. 4. Right atrium: The atrium was mildly dilated. 5. Pulmonary arteries: Pulmonary systolic pressure was in the range of 25mm Hg to 35mm Hg. 6. Inferior vena cava: The vessel was normal in size; the respirophasic diameter changes were in the normal range (greater than or equal to 50%); findings are consistent with normal central venous pressure. Pulmonary Function Summary: Date of service: 10/19/23 Time of Service: 07:59 Pulmonary Function Test Result Requesting Provider Katheryn Kaufman Indications: COPD Interpretation Spirometry: Normal FEV1/FVC, but severely decreased FEV1 ad FVC Lung Volumes: Moderate to severe decrease in lung volumes w/ air trapping Diffusion Capacity: Moderate decrease in diffusion Impression Severe obstructive ventilatory defect w/ reversibilty after albuterol. Moderate restrictive ventilatory defect and moderate decrease in diffusion. Flow volume curve suggests mixed disease. Clinical Correlation therefore is recommended. Anesthesia Assessment and Plan Anesthesia History Personal History: No History of Anesthesia Complications Family History: No Family History of Anesthesia Complications Exercise Tolerance Exercise Tolerance: Metabolic Equivalents<4 Pertinent Negatives Pertinent Negatives: No Symptoms of GERD, No Major Cardiovascular Symptoms or Complaints and No Major Pulmonary Symptoms or Complaints Cardiac & Pulmonary Exam Cardiac Exam: Normal S1/S2 Heart Sounds Pulmonary Exam: Clear Bilateral Breath Sounds Implantable Cardiac Device Does patient have a Pacemaker or an ICD?: No Airway Exam Known Difficult Airway: No Mallampati Class: 2 Mouth Opening: Normal (> 3cm) Thyromental Distance: Greater than 3 cm Neck Range of Motion: Full ROM Neck Circumference: Normal Teeth Condition: Normal Dentition ASA Classification ASA Score: ASA 3 Emergency Case?: No NPO Status NPO Status: NPO Clears >2 hours, Solids >8 hours Anesthesia Plan Resuscitation Status: Full Code Anesthesia Technique: General Anesthesia Airway Planned: Natural Airway Monitors Used: Standard Monitors
[2024-10-16] MEDS: Lactated Ringers 1,000 ML 80 ML IV (08:15)
[2024-10-16 08:30] VITALS: BMI 44.4
--- NOTE | 2024-10-16 09:10 | BOWEL_PTH ---
PATIENT: Saji Jacobo LOC: [facility] U#:[id number] AGE/SX: 69/M ROOM: RE10/16/[address]: Saji Dick MD : 1955 BED: DIS: 10/16/2024 SPEC #: [id number] RECD: 10/16/24 13:05 STATUS: ERVIN RE #: [id number] JESSICA: 10/16/24 09:[address]: Saji Dick DEPT: Surgical Specimen RECD BY: Cassandra Montague ENTERED: 10/16/24 13:06 SP TYPE: Bowel OTHR DR: Laura Vincent Tissues: 1 - BIOPSY BOWEL 2 - BIOPSY BOWEL 3 - BIOPSY BOWEL 4 - BIOPSY BOWEL Procedures: GROSS AND MICRO LEVEL 4 Comments: [id number]
[2024-10-16 09:56] VITALS: BP 122/67; PULSE 84; RESP 16; TEMP 36.9; O2SAT 95
--- NOTE | 2024-10-16 10:29 | W.ANESPOSTOP ---
Postoperative Evaluation Date, Time and Location Date Performed: 10/16/24 Time Performed: 10:29 Patient Location: Day Surgery Unit Vital Signs Most Recent Imported Vital Signs: Most Recent Vital Signs Temp Pulse Resp BP Pulse Ox 36.9 C 84 16 122/67 95 10/16/24 09:56 10/16/24 09:56 10/16/24 09:56 10/16/24 09:56 10/16/24 09:56 Pain Score Most Recent Pain Score: Most Recent Pain Score Pain Level 0 10/16/24 09:56 Assessment Mental Status: Awake (Alert & Oriented to Patient Baseline) Airway and Respiratory Function: Patent airway with normal (patient baseline) respiratory exam Cardiovascular Function: Hemodynamically Stable Hydration Status: Adequately Hydrated Nausea & Vomiting: No Nausea or Vomiting Pain: Pt. Denies Any Pain Peripheral Nerve Block: Patient did not receive a nerve block
[2024-10-16 10:30] VITALS: BP 137/90; PULSE 76; RESP 16; TEMP 36.2; O2SAT 95
== END 2024-10-16 10:44 | disposition home or self-care (01) ==
LOC: SUR 07:28
PROVIDERS: PCP Family Medicine; Visit Provider Surgery
PROC: 0DJD8ZZ Inspection of Lower Intestinal Tract, Via Natural or Artificial Opening Endoscopic (ICD-10-PCS; CPT 45378; principal; 2024-10-16 09:00)
DX: Z12.11 Encounter for screening for malignant neoplasm of colon (principal); D12.2 Benign neoplasm of ascending colon; D12.4 Benign neoplasm of descending colon; D12.5 Benign neoplasm of sigmoid colon; K57.30 Diverticulosis of large intestine without perforation or abscess without bleeding
CPT/HCPCS: 45385; 45380; 88305; J2003; J2704

== ENCOUNTER 2024-10-19 11:00 | Outpatient (RCR) | payer SELFPAY ==
[2024-09-24 00:12] VITALS: BP 143/81; PULSE 76
[2024-09-26 11:15] VITALS: BP 149/88; PULSE 84
[2024-09-28 11:09] VITALS: BP 135/81; PULSE 73
[2024-10-03 14:27] VITALS: BP 142/82; PULSE 70
[2024-10-10 11:27] VITALS: BP 114/77; PULSE 75; O2SAT 95
[2024-10-12 12:27] VITALS: BP 132/79; PULSE 72; O2SAT 93
[2024-10-19 11:00] VITALS: BP 123/76; PULSE 74
== END 2024-10-23 23:59 | disposition home or self-care (01) ==
LOC: CR 11:00
PROVIDERS: PCP Family Medicine; Visit Provider Internal Medicine Cardiovascular Disease
DX: R69 Illness, unspecified (principal)

== ENCOUNTER 2024-11-23 11:00 | Outpatient (RCR) | payer SELFPAY ==
[2024-10-24 11:35] VITALS: BP 129/90; PULSE 81; O2SAT 95
[2024-10-26 11:17] VITALS: BP 130/85; PULSE 76; O2SAT 92
[2024-10-31 13:41] VITALS: BP 133/87; PULSE 84; O2SAT 94
[2024-11-07 11:11] VITALS: BP 137/85; PULSE 72; O2SAT 90
[2024-11-14 12:52] VITALS: BP 136/84; PULSE 76; O2SAT 94
[2024-11-16 11:00] VITALS: BP 141/84; PULSE 81; O2SAT 94
[2024-11-21 11:14] VITALS: BP 134/83; PULSE 73; O2SAT 92
[2024-11-23 11:13] VITALS: BP 149/98; PULSE 71; O2SAT 94
== END 2024-11-23 23:59 | disposition home or self-care (01) ==
LOC: CR 11:00
PROVIDERS: PCP Family Medicine; Visit Provider Internal Medicine Cardiovascular Disease
DX: R69 Illness, unspecified (principal)

== ENCOUNTER 2024-12-12 11:00 | Outpatient (RCR) | payer SELFPAY ==
[2024-11-24 00:11] VITALS: BP 149/98; PULSE 71
[2024-11-30 11:24] VITALS: BP 148/85; PULSE 81; O2SAT 93
[2024-12-07 11:12] VITALS: BP 129/80; PULSE 77; O2SAT 93
[2024-12-12 11:21] VITALS: BP 117/74; PULSE 86; O2SAT 92
== END 2024-12-24 23:59 | disposition home or self-care (01) ==
LOC: CR 11:00
PROVIDERS: PCP Family Medicine; Visit Provider Internal Medicine Cardiovascular Disease
DX: R69 Illness, unspecified (principal)

== ENCOUNTER 2025-01-18 11:00 | Outpatient (RCR) | payer SELFPAY ==
[2025-01-02 11:17] VITALS: BP 141/81; PULSE 79; O2SAT 93
[2025-01-04 11:00] VITALS: BP 114/79; PULSE 77; O2SAT 93
[2025-01-09 15:07] VITALS: BP 137/78; PULSE 83; O2SAT 94
[2025-01-11 15:06] VITALS: BP 139/79; PULSE 76; O2SAT 93
[2025-01-16 14:33] VITALS: BP 154/87; PULSE 80; O2SAT 92
[2025-01-18 11:00] VITALS: BP 149/87; PULSE 74; O2SAT 94
== END 2025-01-23 23:59 | disposition home or self-care (01) ==
LOC: CR 11:00
PROVIDERS: PCP Family Medicine; Visit Provider Internal Medicine Cardiovascular Disease
DX: R69 Illness, unspecified (principal)

== ENCOUNTER 2025-01-23 18:45 | Outpatient (REF) | payer MEDICARE, BC, SELFPAY ==
[2025-01-23 14:26] LABS: HCT 44.9 % (40.0-50.0); HGB 14.2 g/dL (13.5-17.5); MCH 30.7 pg (27.0-33.0); MCHC 31.6 % (32.0-36.0); MCV 97 fL (80-95); MPV 12.6 fL (8.0-11.0); Platelet Count 221 10^3/uL (130-400); RBC 4.62 10^6/uL (4.36-5.78); RDW 12.2 % (11.8-14.1); RDW-SD 43.8 fL; WBC 5.77 10^3/uL (4.4-10.8)
[2025-01-23 14:52] LABS: ALT 24 U/L (16-63); AST 17 U/L (15-37); Albumin 3.8 g/dL (3.4-5.0); Alkaline Phosphatase 105 U/L (46-116); Anion Gap 7.7 mmol/L (3-11); BUN 21 mg/dL (7-18); Bilirubin, Total 0.6 mg/dL (0.2-1.0); CO2 30.3 mmol/L (21.0-32.0); Calcium 8.9 mg/dL (8.5-10.1); Calculated LDL 99 mg/dL (<100); Chloride 104 mmol/L (98-107); Cholesterol 157 mg/dL (<200); Estimated GFR 80.97 (mL/min/1.73m2); Glucose 90 mg/dL (74-106); HDL Cholesterol 39 mg/dL (>or=40); Potassium 4.6 mmol/L (3.5-5.1); Sodium 142 mmol/L (136-145); Total Protein 6.9 g/dL (6.4-8.2); Triglyceride 96 mg/dL (<150); Vitamin D 25 Total 30 ng/mL (30-100)
== END 2025-01-23 18:46 | disposition home or self-care (01) ==
LOC: NCHCN 18:45
PROVIDERS: PCP Family Medicine; Visit Provider Family Medicine
DX: I10 Essential (primary) hypertension (principal); E55.9 Vitamin D deficiency, unspecified; D64.9 Anemia, unspecified; E78.00 Pure hypercholesterolemia, unspecified
CPT/HCPCS: 80053; 80061; 82306; 85027

== ENCOUNTER 2025-02-20 11:00 | Outpatient (RCR) | payer SELFPAY ==
[2025-01-30 11:33] VITALS: BP 142/79; PULSE 70; O2SAT 93
[2025-02-06 11:26] VITALS: BP 153/94; PULSE 79; O2SAT 93
[2025-02-08 11:22] VITALS: BP 142/80; PULSE 73; O2SAT 94
[2025-02-15 11:38] VITALS: BP 133/71; PULSE 75; O2SAT 94
[2025-02-20 11:26] VITALS: BP 112/75; PULSE 77; O2SAT 94
== END 2025-02-23 23:59 | disposition home or self-care (01) ==
LOC: CR 11:00
PROVIDERS: PCP Family Medicine; Visit Provider Internal Medicine Cardiovascular Disease
DX: R69 Illness, unspecified (principal)

== ENCOUNTER 2025-03-06 11:00 | Outpatient (RCR) | payer SELFPAY ==
[2025-02-24 00:13] VITALS: BP 112/75; PULSE 77
[2025-03-01 11:29] VITALS: BP 152/89; PULSE 65; O2SAT 96
[2025-03-06 11:11] VITALS: BP 140/83; PULSE 66; O2SAT 93
== END 2025-03-25 23:59 | disposition home or self-care (01) ==
LOC: CR 11:00
PROVIDERS: PCP Family Medicine; Visit Provider Internal Medicine Cardiovascular Disease
DX: R69 Illness, unspecified (principal)

== ENCOUNTER 2025-04-17 11:00 | Outpatient (RCR) | payer SELFPAY ==
[2025-03-26 00:07] VITALS: BP 140/83; PULSE 66
[2025-03-29 11:12] VITALS: BP 139/81; PULSE 75; O2SAT 92
[2025-04-03 11:45] VITALS: BP 153/92; PULSE 80; O2SAT 93
[2025-04-05 11:13] VITALS: BP 154/88; PULSE 65; O2SAT 90
[2025-04-10 11:13] VITALS: BP 111/76; PULSE 83; O2SAT 95
[2025-04-12 11:17] VITALS: BP 137/84; PULSE 72; O2SAT 95
[2025-04-17 11:13] VITALS: BP 133/79; PULSE 83
== END 2025-04-25 23:59 | disposition home or self-care (01) ==
LOC: CR 11:00
PROVIDERS: PCP Family Medicine; Visit Provider Internal Medicine Cardiovascular Disease
DX: R69 Illness, unspecified (principal)